=== PATIENT | male | born 1965 | race Caucasian/White ===

== ENCOUNTER 2020-08-02 21:48 | Emergency (ER) | payer MEDICAID, SELFPAY ==
[2020-08-02 21:58] VITALS: BP 134/94; PULSE 97; RESP 18; TEMP 36.8; O2SAT 95; BMI 33.0
--- NOTE | 2020-08-02 22:07 | CT_ITS ---
PROCEDURE: CT ABDOMEN PELVIS WO CON CLINICAL INDICATION: left flank pain COMPARISON: No exams were available for comparison TECHNIQUE: Axial images obtained with sagittal and coronal reformats. All CT scans at the facility use one or more dose reduction, viz: automated exposure control, ma/kV adjustment per patient size (including targeted exams where dose is matched to indication, i.e. head), or iterative reconstruction technique. FINDINGS: LOWER THORAX: No acute finding ABDOMEN & PELVIS: The liver, spleen, pancreas, adrenal glands, and kidneys show no acute finding. No intestinal obstruction or free air. No evidence of appendicitis or diverticulitis. No pelvic mass, abnormal fluid collection, or focal inflammatory change of the pelvis. No acute bony anomalies. IMPRESSION: No acute finding Dictated by: Skinny Cedeño MD 08/03/2020 05:48 Skinny Cedeño MD in [place] 08/03/2020 05:48
[2020-08-02 22:28] LABS: Basophils % 0.4 % (0.1-2.0); Eosinophils # 0.2 K/mm3 (0.0-0.4); Eosinophils % 2.2 % (0.1-12.0); Hemoglobin 15.8 g/dL (14.1-18.0); Lymphocytes # 2.6 K/mm3 (0.7-4.5); Lymphocytes % 35.9 % (10-50); Mean Corpuscular HGB Conc 32.2 g/dL (31.8-35.4); Mean Corpuscular Hemoglobin 29.7 pg (27.0-31.2); Mean Corpuscular Volume 92.4 fl (80-94); Mean Platelet Volume 7.4 fl (7.4-10.4); Monocytes # 0.5 K/mm3 (0.1-1.0); Monocytes % 6.4 % (1.7-9.3); Neutrophils # 4.1 K/mm3 (1.8-7.8); Neutrophils % 55.1 % (37.0-80.0); Platelet Count 249 K/mm3 (142-424); Red Cell Distribution Width 13.6 % (11.5-17.5); White Blood Count 7.4 K/mm3 (4.8-10.8)
[2020-08-02 22:29] LABS: Chloride 96 mmol/L (98-107)
[2020-08-02 22:30] LABS: Potassium 3.9 mmoL/L (3.5-5.1); Sodium 132 mmol/L (136-145)
[2020-08-02 22:30] LABS: Microscopic, Urine URINE MICROSCOPIC (MICROSCOPIC)
[2020-08-02 22:32] LABS: Amylase 61 U/L (30-110); Blood Urea Nitrogen 16 mg/dl (9-20); Creatinine Clearance Estimated 149 mL/min (50-200); Estimated Glomerular Filt Rate 88 ml/min (>60); GFR (African American) 106 ML/MIN (>60)
--- NOTE | 2020-08-02 22:32 | HMH.EDGENADL ---
ED Disposition Clinical Impression: Flank pain, acute Diabetes mellitus Qualifiers: Diabetes mellitus type: type 2 Diabetes mellitus parts counterman insulin use: unspecified parts counterman insulin use status Diabetes mellitus complication status: with other specified complication Qualified Code(s): E11.69 - Type 2 diabetes mellitus with other specified complication Disposition: Home, Self-Care Condition on Discharge: Good Instructions: DI for Flank Pain Additional Instructions: fluids and use meds and call pcp for follow up Prescriptions: levoFLOXacin [Levaquin 500mg tab] 500 mg PO DAILY #7 tab Transmission Status: Pending to [facility] #[id number] Referrals: Elijah Oneal MD [Primary Care Provider] - - Critical Care Critical Care Time: No Attestation: On 08/02/20, the high probability of a clinically significant, sudden or life threatening deterioration of the following system(s) required my full and direct attention, intervention and personal management. The time I documented below is in addition to time spent performing reported procedures but includes the following listed in this critical care notation. Medical Decision Making - Medical Records Medical records reviewed: Yes: I reviewed the patient's medical records. - Brayden Inquiry Pt receiving controlled substance: No Vital Signs: 08/02/20 21:58 08/02/20 23:00 08/02/20 23:31 Temperature 98.3 F Temperature Source Oral Pulse Rate [Right] 97 H 76 75 Respiratory Rate 18 16 16 Blood Pressure [Right Arm] 134/94 H 109/61 L 117/62 Blood Pressure Mean [Right Arm] 107 77 80 Blood Pressure Source [Right Arm] Automatic Cuff Automatic Cuff Automatic Cuff Blood Pressure Position [Right Arm] Supine Supine Supine 02 Sat by Pulse Oximetry 95 95 97 Oxygen Delivery Method Room Air Room Air Room Air - Lab Data Lab results reviewed: Yes: I reviewed the patient's lab results. Lab Results 08/02/20 21:55: Urine Color Yellow, Urine Appearance Clear, Urine pH 5.5, Ur Specific [place] 1.020, Urine Protein Negative, Urine Glucose (UA) 3+, Urine Ketones Negative, Urine Blood 2+, Urine Nitrate Negative, Urine Bilirubin Negative, Urine Urobilinogen 0.2, Ur Leukocyte Esterase Negative 08/02/20 22:00: WBC 7.4, RBC 5.30, Hgb 15.8, Hct 49.0, MCV 92.4, MCH 29.7, MCHC 32.2, RDW 13.6, Plt Count 249, MPV 7.4, Neut % (Auto) 55.1, Lymph % (Auto) 35.9, [place] % (Auto) 6.4, Eos % (Auto) 2.2, Baso % (Auto) 0.4, Neut # (Auto) 4.1, Lymph # (Auto) 2.6, [place] # (Auto) 0.5, Eos # (Auto) 0.2, Baso # (Auto) 0.0, ESR 3 08/02/20 22:00: Sodium 132 L, Potassium 3.9, Chloride 96 L, Carbon Dioxide 27, Anion Gap 12.9, BUN 16, Creatinine 0.90, Estimated Creat Clear 149, Estimated GFR 88, Est GFR ( Amer) 106, Glucose 512 H*, Calcium 9.7, Total Bilirubin 0.7, AST 40, ALT 44, Alkaline Phosphatase 87, C-Reactive Protein 5.8 H, Total Protein 7.3, Albumin 4.2, Globulin 3.1, Albumin/Globulin Ratio 1.4, Amylase 61, Lipase 42 Result diagrams: 08/02/20 22:00 08/02/20 22:00 Orders (Tests/Meds): ED MEDICATIONS Generic Name Dose Route Start Last Admin Trade Name Freq PRN Reason Stop Dose Admin Sodium Chloride 1,000 mls @ 999 mls/hr 08/02/20 22:15 08/02/20 22:12 Sod Chlor 0.9% 1000ml Bag IV 08/02/20 23:15 999 mls/hr .Q1H1M SHAKIRA Administration Discontinued Medications Generic Name Dose Route Start Last Admin Trade Name Freq PRN Reason Stop Dose Admin Acetaminophen/Codeine Phosphate 1 gisel 08/02/20 23:46 08/02/20 23:47 Acetaminophen 300mg W/Codeine 30mg Take Home Pack (6) PO 08/02/20 23:47 1 gisle ONCE ONE Administration Insulin Human Regular 5 unit 08/02/20 23:21 08/02/20 23:22 Insulin Human Regular 100 Units/Ml 10ml Vial IVP 08/02/20 23:22 5 unit ONCE ONE Administration Ketorolac Tromethamine 30 mg 08/02/20 22:07 08/02/20 22:12 Ketorolac 30mg/Ml Vial IV 08/02/20 22:08 30 mg ONCE ONE Administration Levofloxacin 500 mg 08/02/20 23:46
[2020-08-02 22:33] LABS: Alanine Aminotransferase 44 U/L (12-78); Albumin Level 4.2 g/dl (3.5-5.0); Albumin/Globulin Ratio 1.4 (1.1-1.8); Alkaline Phosphatase 87 U/L (38-126); Anion Gap 12.9 mEq/L (5-15); Aspartate Amino Transferase 40 U/L (17-59); Bilirubin,Total 0.7 mg/dl (0.2-1.3); Calcium 9.7 mg/dl (8.4-10.2); Carbon Dioxide 27 mmol/L (22.0-30.0); Globulin 3.1 g/dL (1.3-3.2); Lipase 42 U/L (23-300); Total Protein,Serum 7.3 g/dl (6.3-8.2)
[2020-08-02 22:38] LABS: C-Reactive Protein 5.8 mg/L (0-4)
[2020-08-02 23:00] VITALS: BP 109/61; PULSE 76; RESP 16; O2SAT 95
[2020-08-02 23:13] LABS: Glucose 512 mg/dl (74-100)
[2020-08-02 23:16] LABS: Erythrocyte Sedimentation Rate 3 mm/hr (0-20)
[2020-08-02 23:23] LABS: Appearance,Urine CLEAR (Clear); Bilirubin,Urine Negative (Negative); Blood, Urine 2+ (Negative); Color,Urine YELLOW (Yellow); Glucose,Urine (UA) 3+ (Negative); Ketones,Urine Negative (Negative); Leukocyte Esterase,Urine Negative (Negative); Nitrate,Urine Negative (Negative); PH,Urine 5.5 (5.0-8.5); Protein,Urine Negative (Negative); Urobilinogen,Urine 0.2 EU/dl (0.2)
[2020-08-02 23:31] VITALS: BP 117/62; PULSE 75; RESP 16; O2SAT 97
[2020-08-02 23:51] LABS: Procalcitonin 0.054 ng/mL (0.0-2.0)
[2020-08-02 23:55] LABS: Amorphous Sediment,Urine 1+ /lpf; Bacteria,Urine 1+ /lpf; Mucus,Urine 1+ /lpf
[2020-08-03 00:03] VITALS: BP 125/72; PULSE 74; RESP 16; TEMP 36.6; O2SAT 98
== END 2020-08-03 00:06 | disposition home or self-care (01) ==
PROVIDERS: Emergency Provider Emergency Medicine; PCP Family Medicine
DX: R10.32 Left lower quadrant pain (principal); E11.65 Type 2 diabetes mellitus with hyperglycemia; Z87.442 Personal history of urinary calculi; Z79.899 Other long term (current) drug therapy
CPT/HCPCS: 74176; 80053; 81001; 82150; 83690; 84145; 85025; 85651; 86140; 96365; 96375; 99284; J2405

== ENCOUNTER 2020-09-17 16:29 | Emergency (ER) | payer OTHER, SELFPAY ==
[2020-09-17 16:31] VITALS: BP 167/100; PULSE 69; RESP 20; TEMP 36.6; O2SAT 98; BMI 352572.8
[2020-09-17 16:50] VITALS: BP 149/97; PULSE 78; RESP 18; TEMP 36.6; O2SAT 97; BMI 35.2
--- NOTE | 2020-09-17 17:09 | HMH.EDUTC ---
[facility] [place] Disposition Clinical Impression: Hyperglycemia Intracerebral hemorrhage Qualifiers: Intracerebral hemorrhage etiology: nontraumatic Cerebral hemorrhage location: cerebral hemisphere, unspecified portion Laterality: right Qualified Code(s): I61.2 - Nontraumatic intracerebral hemorrhage in hemisphere, unspecified Disposition: Xfer Short-Term Hosp Condition on Discharge: Fair Referrals: PCP,No [Primary Care Provider] - Forms: Transfer Record - ED Medical Decision Making - Medical Records Medical records reviewed: No: I reviewed the patient's medical records. - Brayden Inquiry Pt receiving controlled substance: No Vital Signs: 09/17/20 16:31 09/17/20 16:50 09/17/20 18:31 Temperature 98 F 97.9 F Temperature Source Oral Oral Pulse Rate Pulse Rate [Right Brachial] 69 78 76 Respiratory Rate 20 18 18 Blood Pressure Blood Pressure [Right Arm] 167/100 H 149/97 H 154/96 H Blood Pressure Mean [Right Arm] 122 114 115 Blood Pressure Source Blood Pressure Source [Right Arm] Automatic Cuff Automatic Cuff Blood Pressure Position Blood Pressure Position [Right Arm] Sitting Sitting Sitting 02 Sat by Pulse Oximetry 98 97 98 Oxygen Delivery Method Room Air Room Air Room Air 09/17/20 20:28 Temperature 98.0 F Temperature Source Oral Pulse Rate 91 H Pulse Rate [Right Brachial] Respiratory Rate 15 Blood Pressure 141/96 H Blood Pressure [Right Arm] Blood Pressure Mean [Right Arm] Blood Pressure Source Automatic Cuff Blood Pressure Source [Right Arm] Blood Pressure Position Sitting Blood Pressure Position [Right Arm] 02 Sat by Pulse Oximetry Oxygen Delivery Method Room Air - Lab Data Lab Results 09/17/20 17:30: WBC 9.2, RBC 5.75, Hgb 16.8, Hct 52.1 H, MCV 90.6, MCH 29.3, MCHC 32.3, RDW 13.7, Plt Count 321, MPV 7.5, Neut % (Auto) 70.7, Lymph % (Auto) 21.8, [place] % (Auto) 4.9, Eos % (Auto) 2.2, Baso % (Auto) 0.4, Neut # (Auto) 6.5, Lymph # (Auto) 2.0, [place] # (Auto) 0.5, Eos # (Auto) 0.2, Baso # (Auto) 0.0 09/17/20 17:30: Sodium 137, Potassium 4.3, Chloride 98, Carbon Dioxide 28, Anion Gap 15.0, BUN 13, Creatinine 1.00, Estimated Creat Clear 139, Estimated GFR 78, Est GFR ( Amer) 94, Glucose 418 H*, Calcium 9.8, Total Bilirubin 0.6, AST 24, ALT 36, Alkaline Phosphatase 81, Total Protein 8.0, Albumin 4.6, Globulin 3.4 H, Albumin/Globulin Ratio 1.4 09/17/20 17:30: PT 10.8, INR 0.97 09/17/20 18:20: Urine Color Yellow, Urine Appearance Clear, Urine pH 5.5, Ur Specific [place] 1.025, Urine Protein Negative, Urine Glucose (UA) 3+, Urine Ketones Trace, Urine Blood Negative, Urine Nitrate Negative, Urine Bilirubin Negative, Urine Urobilinogen 0.2, Ur Leukocyte Esterase Negative, Ur Squamous Epith Cells 3-5 Result diagrams: 09/17/20 17:30 09/17/20 17:30 Orders (Tests/Meds): ED MEDICATIONS Discontinued Medications Generic Name Dose Route Start Last Admin Trade Name Ya PRN Reason Stop Dose Admin Hydromorphone HCl 1 mg 09/17/20 18:28 09/17/20 18:37 Hydromorphone 2mg/Ml Syringe IV 09/17/20 18:29 1 mg ONCE ONE Administration Hydromorphone HCl 1 mg 09/17/20 19:12 09/17/20 19:18 Hydromorphone 2mg/Ml Syringe IV 09/17/20 19:13 1 mg ONCE ONE Administration Sodium Chloride 1,000 mls @ 999 mls/hr 09/17/20 18:00 09/17/20 17:20 Sod Chlor 0.9% 1000ml Bag IV 09/17/20 19:00 999 mls/hr .Q1H1M SHAKIRA Administration Ondansetron HCl 4 mg 09/17/20 18:28 09/17/20 18:37 Ondansetron 4mg/2ml Vial IV 09/17/20 18:29 4 mg ONCE ONE Administration Medical Decision Narrative: I transferred him to the er due to his severe head ache. [facility] [place] HPI - General Stated complaint: headache, vomiting, Covid test Time Seen by Provider: 09/17/20 17:09 - History of Present Illness Provider Complaint: He is here with c/o of severe head ache. He has also been coughing and chilling at home. He states that his headache is the worst one he has ever had. He states that he rarely ge
--- NOTE | 2020-09-17 17:18 | XR_ITS ---
PROCEDURE: XR CHEST 2V Referring Doctor: Charles Valenzuela Patient Age:54Y CLINICAL HISTORY: COUGH Smoker COMPARISON: CT CT ABDOMEN PELVIS WO CON from 08/02/2020 FINDINGS: PA and lateral chest performed today but the lungs are well expanded and clear with nothing acute.. Heart upper normal size/borderline cardiomegaly.. With pulmonary vascularity are within normal limits.. The lungs are clear without infiltrates, suspicious nodules, or pleural effusions. The no pneumothorax. Chest wall T-spine unremarkable but No acute bony abnormalities. IMPRESSION: Lungs clear with nothing definitely acute The heart is upper normal size.. Dictated by: Andrews Vasquez MD 09/17/2020 19:00 Andrews Vasquez MD in [place] 09/17/2020 19:00
--- NOTE | 2020-09-17 17:23 | PC.NURSE ---
Pt going to be moved over to ED, asked [facility] to hold pt until room avaiable. Orders placed at this time.
--- NOTE | 2020-09-17 17:24 | CT_ITS ---
PROCEDURE: CT HEAD/BRAIN WO CON Referring Doctor: TrenthebetoAlfie Patient Age:54Y CLINICAL INDICATION: migraine headache for 4 days. Nausea vomiting pain right side.. No previous studies COMPARISON: No exams were available for comparison TECHNIQUE: No IV contrast. Standard axial images were obtained. All CT scans at the facility use one or more dose reduction, viz: automated exposure control, ma/kV adjustment per patient size (including targeted exams where dose is matched to indication, i.e. head), or iterative reconstruction technique. FINDINGS: There is a small focal localized acute hemorrhage focus seen at the a peripherally at the posterior right cerebral hemisphere. This is at the temporoparietal junction region. This small focal hemorrhage measuring 12 mm times 6 mm as seen on axial image 23. It is near the christine-white matter interface.. The overlying skull and scalp appear intact I see no evidence of trauma or other findings, on today's CT. Clinical correlation required.. Patient well benefit from follow-up MRI, or alternatively you may want to the consider a CTA, to survey for a small vascular malformation underlying... No additional similar hyperdense foci. The the no additional foci of bleeding or hemorrhage.. No hydrocephalus.The ventricles and basal cisterns appear clear and satisfactory. No no appreciable mass associated with this small hemorrhagic focus. No midline shift mass. The the no subdural or extra-axial fluid collection is evident. Posterior fossa unremarkable. Skull intact- calvarium and scalp unremarkable. Nomastoid effusions. Mastoid air cells are well developed and clear. Middle ear clear. IAC's symmetric. No moderate mucosal thickening throughout the ethmoid air cells bilaterally of and likely and extending to the maxillary sinuses. IMPRESSION: Small single Acute Hemorrhagic Focus towards the periphery of the posterior right cerebral hemisphere.-. At temporal parietal junction region. . No mass effect. No additional findings. -(ER notified by Dr. Vasquez at 6:10 p.m. September 17) . Dictated by: Andrews Vasquez MD 09/17/2020 18:06 Andrews Vasquez MD in [place] 09/17/2020 18:06
--- NOTE | 2020-09-17 17:38 | PC.NURSE ---
PATIENT TO RADIOLOGY FOR CT AND CHEST XRAY
--- NOTE | 2020-09-17 17:55 | PC.NURSE ---
PATIENT TO ER PER PRATIBHA ALBRECHT APRN FOR FURTHER EVALUATION. REPORTS GIVEN TO Gloria SCHOFIELD RN
[2020-09-17 18:07] LABS: Basophils % 0.4 % (0.1-2.0); Eosinophils # 0.2 K/mm3 (0.0-0.4); Eosinophils % 2.2 % (0.1-12.0); Hematocrit 52.1 % (42.0-52.0); Hemoglobin 16.8 g/dL (14.1-18.0); Lymphocytes % 21.8 % (10-50); Mean Corpuscular HGB Conc 32.3 g/dL (31.8-35.4); Mean Corpuscular Hemoglobin 29.3 pg (27.0-31.2); Mean Corpuscular Volume 90.6 fl (80-94); Mean Platelet Volume 7.5 fl (7.4-10.4); Monocytes # 0.5 K/mm3 (0.1-1.0); Monocytes % 4.9 % (1.7-9.3); Neutrophils # 6.5 K/mm3 (1.8-7.8); Neutrophils % 70.7 % (37.0-80.0); Platelet Count 321 K/mm3 (142-424); Red Blood Count 5.75 M/mm3 (4.60-6.20); Red Cell Distribution Width 13.7 % (11.5-17.5); White Blood Count 9.2 K/mm3 (4.8-10.8)
[2020-09-17 18:09] LABS: Chloride 98 mmol/L (98-107); Sodium 137 mmol/L (136-145)
[2020-09-17 18:10] LABS: Potassium 4.3 mmoL/L (3.5-5.1)
[2020-09-17 18:12] LABS: Alanine Aminotransferase 36 U/L (12-78); Albumin Level 4.6 g/dl (3.5-5.0); Albumin/Globulin Ratio 1.4 (1.1-1.8); Alkaline Phosphatase 81 U/L (38-126); Aspartate Amino Transferase 24 U/L (17-59); Bilirubin,Total 0.6 mg/dl (0.2-1.3); Blood Urea Nitrogen 13 mg/dl (9-20); Carbon Dioxide 28 mmol/L (22.0-30.0); Creatinine Clearance Estimated 139 mL/min (50-200); Estimated Glomerular Filt Rate 78 ml/min (>60); GFR (African American) 94 ML/MIN (>60); Globulin 3.4 g/dL (1.3-3.2)
[2020-09-17 18:13] LABS: Calcium 9.8 mg/dl (8.4-10.2)
[2020-09-17 18:15] LABS: Glucose 418 mg/dl (74-100)
[2020-09-17 18:16] LABS: INR 0.97 (0.9-1.1); Prothrombin Time 10.8 seconds (9.4-11.8)
--- NOTE | 2020-09-17 18:16 | PC.NURSE ---
Dr Vasquez called advising that pt ct showed focal hemorrhage and to advise Dr Arias, Dr Arias advised. r
--- NOTE | 2020-09-17 18:17 | HMH.EDGENADL ---
ED Disposition Clinical Impression: Hyperglycemia Intracerebral hemorrhage Qualifiers: Intracerebral hemorrhage etiology: nontraumatic Cerebral hemorrhage location: cerebral hemisphere, unspecified portion Laterality: right Qualified Code(s): I61.2 - Nontraumatic intracerebral hemorrhage in hemisphere, unspecified Disposition: Xfer Short-Term Hosp Condition on Discharge: Serious Referrals: PCP,No [Primary Care Provider] - Forms: Transfer Record - ED - Critical Care Critical Care Time: No Attestation: On 09/17/20, the high probability of a clinically significant, sudden or life threatening deterioration of the following system(s) required my full and direct attention, intervention and personal management. The time I documented below is in addition to time spent performing reported procedures but includes the following listed in this critical care notation. Medical Decision Making - Brayden Inquiry Pt receiving controlled substance: Yes Brayden was queried for this patient: No Reason not queried -: Emergent pt cond-no time Risks and benefits of using a controlled substance: were not discussed with pt by me Vital Signs: 09/17/20 16:31 09/17/20 16:50 09/17/20 18:31 Temperature 98 F 97.9 F Temperature Source Oral Oral Pulse Rate [Right Brachial] 69 78 76 Respiratory Rate 20 18 18 Blood Pressure [Right Arm] 167/100 H 149/97 H 154/96 H Blood Pressure Mean [Right Arm] 122 114 115 Blood Pressure Source [Right Arm] Automatic Cuff Automatic Cuff Blood Pressure Position [Right Arm] Sitting Sitting Sitting 02 Sat by Pulse Oximetry 98 97 98 Oxygen Delivery Method Room Air Room Air Room Air - Lab Data Lab Results 09/17/20 17:30: WBC 9.2, RBC 5.75, Hgb 16.8, Hct 52.1 H, MCV 90.6, MCH 29.3, MCHC 32.3, RDW 13.7, Plt Count 321, MPV 7.5, Neut % (Auto) 70.7, Lymph % (Auto) 21.8, [place] % (Auto) 4.9, Eos % (Auto) 2.2, Baso % (Auto) 0.4, Neut # (Auto) 6.5, Lymph # (Auto) 2.0, [place] # (Auto) 0.5, Eos # (Auto) 0.2, Baso # (Auto) 0.0 09/17/20 17:30: Sodium 137, Potassium 4.3, Chloride 98, Carbon Dioxide 28, Anion Gap 15.0, BUN 13, Creatinine 1.00, Estimated Creat Clear 139, Estimated GFR 78, Est GFR ( Amer) 94, Glucose 418 H*, Calcium 9.8, Total Bilirubin 0.6, AST 24, ALT 36, Alkaline Phosphatase 81, Total Protein 8.0, Albumin 4.6, Globulin 3.4 H, Albumin/Globulin Ratio 1.4 09/17/20 17:30: PT 10.8, INR 0.97 09/17/20 18:20: Urine Color Yellow, Urine Appearance Clear, Urine pH 5.5, Ur Specific [place] 1.025, Urine Protein Negative, Urine Glucose (UA) 3+, Urine Ketones Trace, Urine Blood Negative, Urine Nitrate Negative, Urine Bilirubin Negative, Urine Urobilinogen 0.2, Ur Leukocyte Esterase Negative, Ur Squamous Epith Cells 3-5 Result diagrams: 09/17/20 17:30 09/17/20 17:30 Orders (Tests/Meds): ED MEDICATIONS Discontinued Medications Generic Name Dose Route Start Last Admin Trade Name Ya PRN Reason Stop Dose Admin Hydromorphone HCl 1 mg 09/17/20 18:28 09/17/20 18:37 Hydromorphone 2mg/Ml Syringe IV 09/17/20 18:29 1 mg ONCE ONE Administration Hydromorphone HCl 1 mg 09/17/20 19:12 09/17/20 19:18 Hydromorphone 2mg/Ml Syringe IV 09/17/20 19:13 1 mg ONCE ONE Administration Sodium Chloride 1,000 mls @ 999 mls/hr 09/17/20 18:00 09/17/20 17:20 Sod Chlor 0.9% 1000ml Bag IV 09/17/20 19:00 999 mls/hr .Q1H1M SHAKIRA Administration Ondansetron HCl 4 mg 09/17/20 18:28 09/17/20 18:37 Ondansetron 4mg/2ml Vial IV 09/17/20 18:29 4 mg ONCE ONE Administration ORDERS Category Date Time Status Covid-19 Nasal PCR ([facility]) Routine Lab 09/17/20 16:50 Received - Radiology Data #1 Image(s): Chest Image Reviewed: Yes I have reviewed radiologist's interpretation PROCEDURE: XR CHEST 2V Referring Doctor: Charles Valenzuela Patient Age:54Y CLINICAL HISTORY: COUGH Smoker COMPARISON: CT CT ABDOMEN PELVIS WO CON from 08/02/2020 FINDINGS: PA and lateral chest performed today
[2020-09-17 18:29] LABS: Microscopic, Urine URINE MICROSCOPIC (MICROSCOPIC)
[2020-09-17 18:31] VITALS: BP 154/96; PULSE 76; RESP 18; O2SAT 98
[2020-09-17 18:31] LABS: Appearance,Urine CLEAR (Clear); Bilirubin,Urine Negative (Negative); Blood, Urine Negative (Negative); Color,Urine YELLOW (Yellow); Glucose,Urine (UA) 3+ (Negative); Ketones,Urine TRACE (Negative); Leukocyte Esterase,Urine Negative (Negative); Nitrate,Urine Negative (Negative); PH,Urine 5.5 (5.0-8.5); Protein,Urine Negative (Negative); Specific Gravity, Urine 1.025 (1.005-1.030); Urobilinogen,Urine 0.2 EU/dl (0.2)
--- NOTE | 2020-09-17 18:33 | PC.NURSE ---
speaking with Dr. Colmenares
--- NOTE | 2020-09-17 18:47 | PC.NURSE ---
Calling report to ER
[2020-09-17 20:28] VITALS: BP 141/96; PULSE 91; RESP 15; TEMP 36.7; O2SAT 93
== END 2020-09-17 20:31 | disposition short-term general hospital (02) ==
LOC: UTC 16:39 → ER 17:55
PROVIDERS: Nurse Practitioner Family; Emergency Provider Emergency Medicine
DX: I61.2 Nontraumatic intracerebral hemorrhage in hemisphere, unspecified (principal); E11.65 Type 2 diabetes mellitus with hyperglycemia; Z79.84 Long term (current) use of oral hypoglycemic drugs; Z20.822 Contact with and (suspected) exposure to COVID-19
CPT/HCPCS: 70450; 71046; 80053; 81001; 85025; 85610; 99284; J2405; U0003

== ENCOUNTER 2021-09-05 11:58 | Emergency (ER) | payer BC, SELFPAY ==
[2021-09-05 12:30] VITALS: BP 119/70; PULSE 80; RESP 16; TEMP 36.8; O2SAT 99; BMI 32.5
--- NOTE | 2021-09-05 12:31 | XR_ITS ---
FINAL REPORT CLINICAL HISTORY: cough, congestion x 1 week COMPARISON: 09/17/2020 FINDINGS: TWO VIEWS OF THE CHEST The heart is normal in size. The mediastinum is unremarkable. The lungs are clear. There is no pneumothorax. IMPRESSION: No acute cardiopulmonary process. Reviewed, Interpreted and Dictated by Luigi Friend III, MD Transcribed by Alka Lewis Authenticated by Luigi Friend III, MD on 09/05/2021 02:51:44 PM [facility]
[2021-09-05 14:47] VITALS: BP 132/87; PULSE 103; RESP 22; TEMP 36.5; O2SAT 94; BMI 31.1
--- NOTE | 2021-09-05 15:29 | HMH.EDUTC ---
[facility] [place] Disposition Clinical Impression: Viral syndrome, Exposure to COVID-19 virus, Bronchitis Disposition: Home, Self-Care Condition on Discharge: Good Instructions: DI for COVID-19 (Suspected or Confirmed ), Preventing the Spread of Coronavirus Discharge Instructions Additional Instructions: Drink plenty of fluids. Take tylenol or ibuprofen for pain or fever. Take the medications as directed. Follow up with your regular doctor. GO TO THE ER FOR ANY WORSENING SYMPTOMS Quarantine until you know the results of your covid-19 test. Notify your school or workplace of your results and follow their instructions regarding return to work/school. The cough medication (promethazine dm) will make you drowsy, so don't drive or operate heavy machinery after taking it. Prescriptions: Albuterol Sulfate [Albuterol Sulfate Hfa] 2 puffs IH Q6HP PRN 30 Days #1 each PRN Reason: Shortness Of Breath Transmission Status: Received by [facility] #[id number] Promethazine/Dextromethorphan [Promethazine-Dm Syrup] 5 ml PO Q6HP PRN #240 ml PRN Reason: Cough Transmission Status: Received by [facility] #[id number] Azithromycin [Z-Shady 250mg Tab*] 250 mg PO UD DOSE PK #6 tab Transmission Status: Received by [facility] #[id number] Referrals: Provider,Referral, [Primary Care Provider] - Forms: Work/School Release Time of Disposition: 15:34 Medical Decision Making - Medical Records Medical records reviewed: No: I reviewed the patient's medical records. - Brayden Inquiry Pt receiving controlled substance: No Vital Signs: 09/05/21 12:30 09/05/21 14:47 09/05/21 16:03 Temperature 98.3 F 97.7 F 97.7 F Temperature Source Oral Oral Pulse Rate 103 H Pulse Rate [Right] 80 103 H Respiratory Rate Blood Pressure 132/87 Blood Pressure [Right Arm] 119/70 132/87 Blood Pressure Mean [Right Arm] 86 102 Blood Pressure Source [Right Arm] Automatic Cuff Blood Pressure Position [Right Arm] Sitting 02 Sat by Pulse Oximetry 99 94 L Oxygen Delivery Method Room Air - Lab Data Lab results reviewed: Yes: I reviewed the patient's lab results. Lab Results 09/05/21 15:38: Influenza Type A Ag Negative, Influenza Type B Ag Negative [facility] [place] HPI - General Stated complaint: cough, congestion Time Seen by Provider: 09/05/21 15:29 Mode of Arrival: Ambulatory Source of Information: Patient Limitations: No Limitations Description of Symptoms (Recalled from Triage Doc. by RN): pt c/o a productive cough accompanied with chest pressure and SOA. HEENT Symptoms (Recalled from RN notes): No Resp Symptoms (Recalled from RN notes): Yes (SOA and a productive cough with chest pressure) Skin Symptoms (Recalled from RN notes): No MS Symptoms (Recalled from RN notes): No Functional Status (Recalled from RN notes): wnl - History of Present Illness Provider Complaint: He states that he has had chest congestion, a productive cough with yellowish sputum and body aches for the past 3 days. - Related Data Home Medications Medication Instructions Recorded Confirmed Metformin HCl [Fortamet] 500 mg PO DAILY 08/02/20 05/21/21 Previous Rx's Medication Instructions Recorded Albuterol Sulfate [Albuterol 2 puffs IH Q6HP PRN 30 Days #1 each 09/05/21 Sulfate Hfa] Azithromycin [Z-Shady 250mg Tab*] 250 mg PO UD DOSE PK #6 tab 09/05/21 Promethazine/Dextromethorphan 5 ml PO Q6HP PRN #240 ml 09/05/21 [Promethazine-Dm Syrup] Allergies Allergy/AdvReac Type Severity Reaction Status Date / Time No Known Allergies Allergy Verified 05/21/21 17:51 - Worker's Comp Is this a Worker's Comp case?: No [facility] History - Hepatitis A Screen Drug use history?: No High risk sexual behaviors?: No History of sexually transmitted infection?: No Currently employed?: No Childcare worker?: No Do you have indoor plumbing?: Yes Do you have electricity?: Yes Attestation statement:: This patient has been screened for
[2021-09-05 16:03] VITALS: BP 132/87; PULSE 103; RESP 22; TEMP 36.5
[2021-09-05 19:09] LABS: UTC Influenza A Antigen Negative (Negative)
[2021-09-05 19:37] LABS: UTC Influenza B Antigen Negative (Negative)
== END 2021-09-05 16:04 | disposition home or self-care (01) ==
PROVIDERS: Emergency Provider Nurse Practitioner Family
DX: U07.1 COVID-19 (principal); J20.9 Acute bronchitis, unspecified; E11.9 Type 2 diabetes mellitus without complications
CPT/HCPCS: 71046; 87804; 99202; C9803; G0463; U0003; U0005

== ENCOUNTER 2021-09-09 14:07 | Observation (INO) | payer OTHER, SELFPAY ==
[2021-09-09] VITALS (19 sets, daily range): BP systolic 93–160; BP diastolic 66–114; PULSE 87–117; RESP 16–22; TEMP 36.7–37.1; O2SAT 91–98; BMI 31.1; BMI 28.8
--- NOTE | 2021-09-09 14:33 | HMH.EDGENADL ---
ED Disposition Clinical Impression: Hyperglycemia, COVID-19 virus infection DVT (deep venous thrombosis) Qualifiers: DVT location: lower extremity Affected thrombotic vein of extremity: unspecified vein of extremity Chronicity: acute Laterality: left Qualified Code(s): I82.402 - Acute embolism and thrombosis of unspecified deep veins of left lower extremity Disposition: Admitted As Inpatient Condition on Discharge: Serious - Critical Care Critical Care Time: Yes Attestation: On 09/09/21, the high probability of a clinically significant, sudden or life threatening deterioration of the following system(s) required my full and direct attention, intervention and personal management. The time I documented below is in addition to time spent performing reported procedures but includes the following listed in this critical care notation. Total Critical Care Time: 30 Vital system(s) involved:: Circulatory Failure My critical care processes included: Assessment & monitoring of V/S, Initial and Re-exams, Data Review/Interpretation, Coordinating Care, Medication Orders and management, Documentation Medical Decision Making - Medical Records Medical records reviewed: Yes: I reviewed the patient's medical records. MR Comment: Seen by me in this emergency room on 09/17/2020 for headache and diagnosed with an intracerebral hemorrhage. Transferred to [facility] discovered to have venous sinus thrombosis. He was anticoagulated and was on Coumadin until December, when he lost insurance and stopped taking medications and has had no follow-up since then. Most recent hematology note indicates that he was supposed to have been on Coumadin for 6 months, then he was going to be tested for hypercoagulable states, but no return visits after that as patient stopped treatment and was lost to follow-up. Patient states he was on state insurance but got a job and his insurance was canceled, so he stopped his medication and did not return for follow-up. Also noted to have been seen at the urgent treatment center 4 days ago and had a COVID test which is positive. Patient was unaware of his positive result. - Brayden Inquiry Pt receiving controlled substance: Yes Brayden was queried for this patient: Yes Risks and benefits of using a controlled substance: were not discussed with pt by me Vital Signs: 09/09/21 14:08 09/09/21 14:20 09/09/21 15:01 Temperature 98.3 F Temperature Source Oral Pulse Rate 100 H Respiratory Rate 16 Blood Pressure 134/89 133/109 H Blood Pressure [Right Arm] 134/89 Blood Pressure Mean 117 Blood Pressure Mean [Right Arm] 104 Blood Pressure Source [Right Arm] Automatic Cuff Blood Pressure Position [Right Arm] Sitting 02 Sat by Pulse Oximetry 95 94 L Oxygen Delivery Method Room Air 09/09/21 15:17 09/09/21 15:30 09/09/21 15:45 Temperature Temperature Source Pulse Rate 106 H 100 H Respiratory Rate 20 16 Blood Pressure 121/95 H 131/101 H 120/82 Blood Pressure [Right Arm] Blood Pressure Mean 110 Blood Pressure Mean [Right Arm] Blood Pressure Source [Right Arm] Blood Pressure Position [Right Arm] 02 Sat by Pulse Oximetry 96 93 L Oxygen Delivery Method 09/09/21 16:01 09/09/21 16:15 09/09/21 16:20 Temperature Temperature Source Pulse Rate 92 H 88 88 Respiratory Rate 18 18 19 Blood Pressure 136/103 H 137/97 H 137/97 H Blood Pressure [Right Arm] Blood Pressure Mean Blood Pressure Mean [Right Arm] Blood Pressure Source [Right Arm] Blood Pressure Position [Right Arm] 02 Sat by Pulse Oximetry 94 L 93 L 92 L Oxygen Delivery Method 09/09/21 16:30 09/09/21 17:00 09/09/21 17:30 Temperature Temperature Source Pulse Rate 91 H 98 H Respiratory Rate 22 20 Blood Pressure 135/93 H 129/99 H 138/114 H Blood Pressure [Right Arm] Blood Pressure Mean 118 Blood Pressure Mean [Right Arm] Blood Pressure Source [Right Arm] Blood Pressure Positi
--- NOTE | 2021-09-09 14:35 | PC.NURSE ---
covid swab obtained and sent to lab
[2021-09-09 14:42] LABS: Influenza A, PCR Not Detected (NotDetected); Influenza B, PCR Not Detected (NotDetected)
[2021-09-09 14:52] LABS: Basophils # 0.1 K/mm3 (0-0.2); Basophils % 0.6 % (0.1-2.0); Eosinophils # 0.1 K/mm3 (0.0-0.4); Eosinophils % 1.5 % (0.1-12.0); Hematocrit 49.6 % (42.0-52.0); Hemoglobin 16.4 g/dL (14.1-18.0); Lymphocytes # 1.7 K/mm3 (0.7-4.5); Lymphocytes % 18.1 % (10-50); Mean Corpuscular HGB Conc 33.1 g/dL (31.8-35.4); Mean Corpuscular Hemoglobin 29.9 pg (27.0-31.2); Mean Corpuscular Volume 90.4 fl (80-94); Mean Platelet Volume 7.9 fl (7.4-10.4); Monocytes # 0.4 K/mm3 (0.1-1.0); Monocytes % 4.2 % (1.7-9.3); Neutrophils # 7.2 K/mm3 (1.8-7.8); Neutrophils % 75.7 % (37.0-80.0); Platelet Count 313 K/mm3 (142-424); Red Blood Count 5.49 M/mm3 (4.60-6.20); Red Cell Distribution Width 13.2 % (11.5-17.5); White Blood Count 9.6 K/mm3 (4.8-10.8)
[2021-09-09 14:53] LABS: Chloride 97 mmol/L (98-107)
[2021-09-09 14:54] LABS: Potassium 4.4 mmoL/L (3.5-5.1); Sodium 134 mmol/L (136-145)
[2021-09-09 14:56] LABS: Alanine Aminotransferase 35 U/L (12-78); Aspartate Amino Transferase 34 U/L (17-59); Blood Urea Nitrogen 14 mg/dl (9-20); Creatinine Clearance Estimated 203 mL/min (50-200); Estimated Glomerular Filt Rate 139 ml/min (>60); GFR (African American) 169 ML/MIN (>60)
--- NOTE | 2021-09-09 14:56 | PC.NURSE ---
Spoke with Rakesh about heparin bolus and drip dosing.
[2021-09-09 14:57] LABS: Albumin Level 4.5 g/dl (3.5-5.0); Albumin/Globulin Ratio 1.2 (1.1-1.8); Alkaline Phosphatase 105 U/L (38-126); Anion Gap 18.4 mEq/L (5-15); Bilirubin,Total 0.9 mg/dl (0.2-1.3); Calcium 10.1 mg/dl (8.4-10.2); Carbon Dioxide 23 mmol/L (22.0-30.0); Globulin 3.8 g/dL (1.3-3.2); Total Protein,Serum 8.3 g/dl (6.3-8.2)
[2021-09-09 14:58] LABS: INR 1.06 (0.9-1.1); Prothrombin Time 11.9 seconds (10.1-12.5)
[2021-09-09 15:03] LABS: Glucose 456 mg/dl (74-100)
[2021-09-09 15:04] LABS: Coronavirus 19, PCR Detected (NotDetected)
[2021-09-09 15:14] LABS: D-Dimer 5.04 ug/mL (0.0-0.5)
--- NOTE | 2021-09-09 15:15 | CA_ITS ---
FINAL REPORT TECHNIQUE: Ultrasound images of the deep venous system were obtained from the left groin to the calf veins. CLINICAL HISTORY: CVA STOPPED THINNERS 01/05 LOST INSURANCE +COVID ANGRY RED SWOLLEN LLE FINDINGS: Deep venous thrombosis is seen from the left common femoral vein to the posterior tibial vein. IMPRESSION: Deep venous thrombosis of the left common femoral vein to the posterior tibial vein. Reviewed, Interpreted and Dictated by Rogelio Dixon MD Transcribed by Kathryn Mai Authenticated by Rogelio Dixon MD on 09/10/2021 09:58:26 AM [facility]
--- NOTE | 2021-09-09 15:30 | PC.NURSE ---
Spoke with Laisha who advised Alina would be in, in approx hr to do pt's doppler.
--- NOTE | 2021-09-09 16:00 | PC.NURSE ---
Moved patient from room 11 to room 5 and placed on telemetry monitor prior to starting heparin drip
[2021-09-09 16:01] LABS: Activated Partial Thrombo Time 22.1 seconds (22.8-30.6)
--- NOTE | 2021-09-09 16:01 | PC.NURSE ---
Lab called with glucose results, repeated and verified and report to
--- NOTE | 2021-09-09 16:34 | PC.NURSE ---
desktop support technician bedside
--- NOTE | 2021-09-09 17:00 | PC.NURSE ---
called refrigeration houseman for admission, stated will call back
--- NOTE | 2021-09-09 17:05 | PC.NURSE ---
warehouse distribution associate called back and gave her info on admissions
--- NOTE | 2021-09-09 17:19 | PC.NURSE ---
FSBS 351. notified
[2021-09-09 17:25] LABS: POC Glucose,Bedside 351 (70-110)
--- NOTE | 2021-09-09 17:28 | PC.NURSE ---
Doppler being done at bedside at this time.
[2021-09-09 17:31] LABS: Activated Partial Thrombo Time 152.9 seconds (22.8-30.6)
--- NOTE | 2021-09-09 17:34 | PC.NURSE ---
Lab called with PTT of 152.9. Repeated and verified with lab and notified
--- NOTE | 2021-09-09 17:37 | PC.NURSE ---
CV at bedside performing doppler
--- NOTE | 2021-09-09 17:44 | PC.NURSE ---
Spoke with nightwatch regarding pt's lab results and drip. He advised to turn the drip down to 1500units/hr and recheck a APTT in 4 hours. Repeated and verified with pharmacist. Notified MD of new orders, advised he would place order for blood draw at 10 pm. Drip titrated at this time.
--- NOTE | 2021-09-09 17:52 | PC.NURSE ---
dietary brought supper tray to patient. was given to patient at this time.
--- NOTE | 2021-09-09 18:18 | PC.NURSE ---
pt placed in wheelchair to be taken upstairs by nurse.
[2021-09-09 20:19] LABS: POC Glucose,Bedside 291 (70-110)
[2021-09-09 22:47] LABS: PTT Heparin (inpatient only) 45.3 Seconds (23.6-34.0)
[2021-09-10] VITALS: BP 101/70; PULSE 88; RESP 20; TEMP 36.6; O2SAT 94
[2021-09-10 03:53] LABS: PTT Heparin (inpatient only) 65.5 Seconds (23.6-34.0)
[2021-09-10 04:00] VITALS: BP 96/73; PULSE 82; RESP 17; TEMP 36.4; O2SAT 94
--- NOTE | 2021-09-10 04:12 | PC.NURSE ---
Spoke with April from Night Watch at this time keep current rate of Heparin drip. PTT is 65.5
[2021-09-10 04:53] VITALS: BMI 29.7
[2021-09-10 05:28] LABS: POC Glucose,Bedside 255 (70-110)
--- NOTE | 2021-09-10 07:43 | HMH.PHAVTE ---
[facility] Pharmacy VTE Monitoring - Patient Demographics Admission date: 09/10/21 Report Date: 09/10/21 Time: 07:43 Allergies/Adverse Reactions: Patient Allergies No Known Allergies Allergy (Verified 05/21/21 17:51) Height: 1.83 m Weight: 99.507 kg Patient Problems: Current Active Problems Hyperglycemia (Acute) DVT (deep venous thrombosis) (Acute) COVID-19 virus infection (Acute) - VTE Risk Labs: VTE Related Lab Results Hgb 16.4 g/dL (14.1-18.0) 09/09/21 14:30 Hct 49.6 % (42.0-52.0) 09/09/21 14:30 Plt Count 313 K/mm3 (142-424) 09/09/21 14:30 PT 11.9 seconds (10.1-12.5) 09/09/21 14:30 INR 1.06 (0.9-1.1) 09/09/21 14:30 APTT 65.5 Seconds (23.6-34.0) H* 09/10/21 03:10 BUN 14 mg/dl (9-20) 09/09/21 14:30 Creatinine 0.60 mg/dl (0.66-1.25) L 09/09/21 14:30 Estimated Creat Clear 203 mL/min (50-200) 09/09/21 14:30 Clinical Trial Participant: No - Prophylaxis VTE Prophylaxis Ordered?: Yes Types of VTE Prophylaxis: TEDS Knee High, Pharmacological Pharmacologic Type: Heparin
[2021-09-10 08:00] VITALS: BP 107/75; PULSE 94; RESP 20; TEMP 36.3; O2SAT 95
--- NOTE | 2021-09-10 09:28 | HMH.HP ---
*Admission Date: 09/09/21 *Chief complaint: Leg swelling and pain *History of present illness: Seen by me in this emergency room on 09/17/2020 for headache and diagnosed with an intracerebral hemorrhage. Transferred to [facility] discovered to have venous sinus thrombosis. He was anticoagulated and was on Coumadin until December, when he lost insurance and stopped taking medications and has had no follow-up since then. Most recent hematology note indicates that he was supposed to have been on Coumadin for 6 months, then he was going to be tested for hypercoagulable states, but no return visits after that as patient stopped treatment and was lost to follow-up. Patient states he was on state insurance but got a job and his insurance was canceled, so he stopped his medication and did not return for follow-up. Also noted to have been seen at the urgent treatment center 4 days ago and had a COVID test which is positive. Patient was unaware of his positive result Above note per emergency room physician. Patient notes that he lost his insurance secondary to job change and the [facility] does not help people out until their body breaks down to the have to go to the ER. Patient had a cough 3 or 4 days ago, has a positive Covid test as noted above. Noted that his leg was swelling and hot over the past couple of days before presentation, in the ER was diagnosed with significant DVT. Admitted to hospital because of clot burden and his history of significant clot disease in the past. [facility] History I have reviewed the patient's past medical history: Yes Medical History: Reports:: Diabetes Mellitus Type 2 Denies:: Cancer, Diabetes Mellitus Type 1, Internal Pacemaker, MRSA *Have you ever received a pneumonia vaccine?: No *Have you received a flu vaccine this season?: No Laterality Cases: Bilateral: Tonsillectomy Other Surgeries: No: Pacemaker Amputation: No - *Social History Last grade of school completed: High school graduate Smoking Status: Never smoker Alcohol Intake: never *Occupational Status:: employed Housing: house Household Members: spouse *Travel in the last 8 weeks: None Family Hx:: No significant family history Review of Systems - Review of Systems Review of systems:: pertinent systems reviewed and negative unless documented below - *Neurologic Denies headache(s) Meds Home Medications Medication Instructions Recorded Confirmed Type Metformin HCl 500 mg PO DAILY 09/09/21 09/09/21 History Allergies Allergy/AdvReac Type Severity Reaction Status Date / Time No Known Allergies Allergy Verified 05/21/21 17:51 Exam Vital signs and Labs for Last 24 Hours: Temp Pulse Resp BP Pulse Ox 97.6 F 82 17 96/73 L 94 L 09/10/21 04:00 09/10/21 04:00 09/10/21 04:00 09/10/21 04:00 09/10/21 04:00 Laboratory Results - last 24 hr 09/09/21 14:30: WBC 9.6, RBC 5.49, Hgb 16.4, Hct 49.6, MCV 90.4, MCH 29.9, MCHC 33.1, RDW 13.2, Plt Count 313, MPV 7.9, Neut % (Auto) 75.7, Lymph % (Auto) 18.1, [place] % (Auto) 4.2, Eos % (Auto) 1.5, Baso % (Auto) 0.6, Neut # (Auto) 7.2, Lymph # (Auto) 1.7, [place] # (Auto) 0.4, Eos # (Auto) 0.1, Baso # (Auto) 0.1 09/09/21 14:30: PT 11.9, INR 1.06 09/09/21 14:30: Sodium 134 L, Potassium 4.4, Chloride 97 L, Carbon Dioxide 23, Anion Gap 18.4 H, BUN 14, Creatinine 0.60 L, Estimated Creat Clear 203, Estimated GFR 139, Est GFR ( Amer) 169, Glucose 456 H*, Calcium 10.1, Total Bilirubin 0.9, AST 34, ALT 35, Alkaline Phosphatase 105, Total Protein 8.3 H, Albumin 4.5, Globulin 3.8 H, Albumin/Globulin Ratio 1.2 09/09/21 14:30: D-Dimer 5.04 H 09/09/21 14:30: APTT 22.1 L 09/09/21 14:32: SARS-CoV-2 (PCR) Detected A, Influenza A Untype (PCR) Not detected, Influenza Type B (PCR) Not detected 09/09/21 16:35: APTT 152.9 H* D 09/09/21 17:18: POC Glucose 351 H* 09/09/21 20:13: POC Glucose 291 H 09/09/21 22:10: APTT 45.3 H 09/10/21 03:10: APTT 65.5 H* 09/10/21 05:21: POC Glucose 255 H I & O for
[2021-09-10 09:37] LABS: Chloride 97 mmol/L (98-107); PTT Heparin (inpatient only) 51.8 Seconds (23.6-34.0)
[2021-09-10 09:38] LABS: Potassium 3.9 mmoL/L (3.5-5.1); Sodium 133 mmol/L (136-145)
[2021-09-10 09:40] LABS: Alanine Aminotransferase 31 U/L (12-78); Alkaline Phosphatase 96 U/L (38-126); Aspartate Amino Transferase 28 U/L (17-59); Bilirubin,Total 0.8 mg/dl (0.2-1.3); Blood Urea Nitrogen 23 mg/dl (9-20); Creatinine Clearance Estimated 145 mL/min (50-200); Estimated Glomerular Filt Rate 100 ml/min (>60); GFR (African American) 121 ML/MIN (>60)
[2021-09-10 09:41] LABS: Albumin Level 4.1 g/dl (3.5-5.0); Albumin/Globulin Ratio 1.1 (1.1-1.8); Anion Gap 15.9 mEq/L (5-15); Calcium 9.1 mg/dl (8.4-10.2); Carbon Dioxide 24 mmol/L (22.0-30.0); Globulin 3.6 g/dL (1.3-3.2); Glucose 339 mg/dl (74-100); Total Protein,Serum 7.7 g/dl (6.3-8.2)
[2021-09-10 11:03] LABS: INR 1.13 (0.9-1.1); Prothrombin Time 12.7 seconds (10.1-12.5)
[2021-09-10 11:27] LABS: POC Glucose,Bedside 297 (70-110)
--- NOTE | 2021-09-10 13:42 | HMH.PHAHEP ---
[facility] Pharmacy Heparin Dosing - Demographic Data Admission date:: 09/09/21 Date: 09/09/21 Time: 14:30 Allergies/Adverse Reactions: Allergies Allergy/AdvReac Type Severity Reaction Status Date / Time No Known Allergies Allergy Verified 05/21/21 17:51 Height: 1.83 m Weight: 99.5 kg - Indication Medication therapy:: Heparin Patient Problems: Current Active Problems Diabetes mellitus (Acute) Hyperglycemia (Acute) DVT (deep venous thrombosis) (Acute) COVID-19 virus infection (Acute) Clotting disorder (Acute) CVA?: No Bleeding problem?: No Kidney disease?: No [place]?: No Desired PTT range:: Other Comments:: Target PTT 50-75 - Labs Anticoagulation Lab Results:: 09/09/21 14:30 Hgb 16.4 Hct 49.6 Plt Count 313 - Monitoring Dose Monitor 1 Date: 09/09/21 Time: 14:30 PTT Result:: PTT 22.1 Infusion Rate:: BOLUSED WITH HEPARIN 8500 UNITS AND STARTED DRIP AT 1800 UNITS/HR. Dose Monitor 2 Date: 09/09/21 Time: 16:35 PTT Result:: PTT 152.9 Infusion Rate:: DOSE WAS REDUCTED TO HEPARIN 1500 UNITS/HR. Dose Monitor 3 Date: 09/09/21 Time: 22:10 PTT Result:: PTT 45.3 Infusion Rate:: BOLUSED WITH HEPARIN 3000 UNITS AND INCREASED INFUSION RATE TO 1700 UNITS/HR. Dose Monitor 4 Date: 09/10/21 Time: 03:10 PTT Result:: PTT 65.5 Infusion Rate:: CONTINUE WITH HEPARIN 1700 UNITS/HR. Dose Monitor 5 Date: 09/10/21 Time: 09:00 PTT Result:: PTT 51.8 Infusion Rate:: CONTINUED HEPARIN 1700 UNITS/HR. Dose Monitor 6 Date: 09/10/21 Time: 17:10 PTT Result:: PTT 53.8 Infusion Rate:: CONTINUE WITH HEPARIN 1700 UNITS/HR Dose Monitor 7 Date: 09/11/21 Time: 09:00 PTT Result:: PTT 64.7 Infusion Rate:: CONTINUE WITH HEPARIN 1700 UNITS/HR Dose Monitor 8 Date: 09/11/21 Time: 21:00 - Core Measures Is INR > or = 2 at discharge?: No Most Recent Labs:: Laboratory Results - last 24 hr 09/09/21 14:30: WBC 9.6, RBC 5.49, Hgb 16.4, Hct 49.6, MCV 90.4, MCH 29.9, MCHC 33.1, RDW 13.2, Plt Count 313, MPV 7.9, Neut % (Auto) 75.7, Lymph % (Auto) 18.1, [place] % (Auto) 4.2, Eos % (Auto) 1.5, Baso % (Auto) 0.6, Neut # (Auto) 7.2, Lymph # (Auto) 1.7, [place] # (Auto) 0.4, Eos # (Auto) 0.1, Baso # (Auto) 0.1 09/09/21 14:30: PT 11.9, INR 1.06 09/09/21 14:30: Sodium 134 L, Potassium 4.4, Chloride 97 L, Carbon Dioxide 23, Anion Gap 18.4 H, BUN 14, Creatinine 0.60 L, Estimated Creat Clear 203, Estimated GFR 139, Est GFR ( Amer) 169, Glucose 456 H*, Calcium 10.1, Total Bilirubin 0.9, AST 34, ALT 35, Alkaline Phosphatase 105, Total Protein 8.3 H, Albumin 4.5, Globulin 3.8 H, Albumin/Globulin Ratio 1.2 09/09/21 14:30: D-Dimer 5.04 H 09/09/21 14:30: APTT 22.1 L 09/09/21 14:32: SARS-CoV-2 (PCR) Detected A, Influenza A Untype (PCR) Not detected, Influenza Type B (PCR) Not detected 09/09/21 16:35: APTT 152.9 H* D 09/09/21 17:18: POC Glucose 351 H* 09/09/21 20:13: POC Glucose 291 H 09/09/21 22:10: APTT 45.3 H 09/10/21 03:10: APTT 65.5 H* 09/10/21 04:10: PT 12.7 H, INR 1.13 H 09/10/21 05:21: POC Glucose 255 H 09/10/21 09:00: APTT 51.8 H* 09/10/21 09:00: Sodium 133 L, Potassium 3.9, Chloride 97 L, Carbon Dioxide 24, Anion Gap 15.9 H, BUN 23 H D, Creatinine 0.80 D, Estimated Creat Clear 145, Estimated GFR 100, Est GFR ( Amer) 121 D, Glucose 339 H D, Calcium 9.1, Total Bilirubin 0.8, AST 28, ALT 31, Alkaline Phosphatase 96, Total Protein 7.7, Albumin 4.1, Globulin 3.6 H, Albumin/Globulin Ratio 1.1 09/10/21 11:05: POC Glucose 297 H If INR was < than 2.0 why was therapy stopped?: PATIENT IS BEING DISCHARGED WITH LOVENOX 100 MG BID Were Heparin and Warfarin started on the same day?: Yes Comments:: FOLLOW UP IN COUMADIN CLINIC ON TUESDAY, SEPTEMBER 14, 2021 AT 0900.
[2021-09-10 16:00] VITALS: BP 105/67; PULSE 88; RESP 18; TEMP 36.9; O2SAT 96
[2021-09-10 17:27] LABS: POC Glucose,Bedside 211 (70-110)
[2021-09-10 18:10] LABS: PTT Heparin (inpatient only) 53.8 Seconds (23.6-34.0)
--- NOTE | 2021-09-10 18:32 | PC.NURSE ---
Notified compressor station chief engineer pharmacist aptt results, no change to heparin drip at this time, next lab at 0600
--- NOTE | 2021-09-10 18:51 | PC.NURSE ---
Pt has been alert and oriented x4. Lungs are clear, he remains on RA. He reports an occasional non productive cough. notified and kellen ordered prn. Pt reported relief from cough on reassessment. He complained of LLE pain x2 this shift. PRN toradol administered w/favorable results. He's ambulated to the bathroom with standby assist. Other than leg pain and cough he denies any complaints.
[2021-09-10 20:00] VITALS: BP 92/73; PULSE 84; RESP 19; TEMP 36.7; O2SAT 96; O2SAT 97
[2021-09-10 20:14] LABS: POC Glucose,Bedside 279 (70-110)
[2021-09-11 04:00] VITALS: BP 92/64; PULSE 81; RESP 17; TEMP 36.5; O2SAT 96
[2021-09-11 05:00] VITALS: BMI 29.3
[2021-09-11 05:31] LABS: POC Glucose,Bedside 224 (70-110)
--- NOTE | 2021-09-11 06:47 | SW/DCPLANNER ---
PATIENT ADMITTED TO [facility] WITH LEG SWELLING AND PAIN AND WAS FOUND TO HAVE A SIGNIFICANT DVT, IT WAS ALSO NOTED HE WAS POSITIVE FOR COVID..PATIENT DID NOT HAVE ANY INSURANCE WHEN HE PRESENTED INTO THE ED. HE IS FROM HOME AND PLANS TO RETURN BACK ONCE MEDICALLY STABLE. WILL FOLLOW PATIENT THROUGH HIS ACUTE STAY AND ASSIST WITH ANY NEEDS HE MAY HAVE.. THE FINANCIAL COUNSELOR HAS SEEN THIS PATIENT SINCE HE PRESENTED IN WITH NO INSURANCE.
[2021-09-11 07:25] LABS: Alanine Aminotransferase 26 U/L (12-78); Albumin Level 3.6 g/dl (3.5-5.0); Albumin/Globulin Ratio 1.2 (1.1-1.8); Alkaline Phosphatase 85 U/L (38-126); Anion Gap 10.5 mEq/L (5-15); Aspartate Amino Transferase 28 U/L (17-59); Bilirubin,Total 0.5 mg/dl (0.2-1.3); Blood Urea Nitrogen 19 mg/dl (9-20); Calcium 8.7 mg/dl (8.4-10.2); Carbon Dioxide 25 mmol/L (22.0-30.0); Chloride 103 mmol/L (98-107); Creatinine Clearance Estimated 164 mL/min (50-200); Estimated Glomerular Filt Rate 117 ml/min (>60); GFR (African American) 141 ML/MIN (>60); Globulin 3.1 g/dL (1.3-3.2); Glucose 253 mg/dl (74-100); Potassium 3.5 mmoL/L (3.5-5.1); Sodium 135 mmol/L (136-145); Total Protein,Serum 6.7 g/dl (6.3-8.2)
[2021-09-11 08:00] VITALS: BP 107/71; PULSE 81; RESP 17; TEMP 36.3; O2SAT 95; O2SAT 97
[2021-09-11 09:37] LABS: INR 1.35 (0.9-1.1); Prothrombin Time 14.9 seconds (10.1-12.5)
[2021-09-11 09:49] LABS: PTT Heparin (inpatient only) 64.7 Seconds (23.6-34.0)
--- NOTE | 2021-09-11 09:50 | PC.NURSE ---
0958-received PTT results from lab. verified name LUANA and room number 0950- spoke to True Ashley. No changes to heparin gtt at this time.
[2021-09-11 12:06] LABS: POC Glucose,Bedside 271 (70-110)
[2021-09-11 13:16] VITALS: BMI 29.2
--- NOTE | 2021-09-11 13:40 | HMH.DCSUM ---
General - General Admission date:: 09/09/21 Discharge date: 09/11/21 HPI HPI: Seen by me in this emergency room on 09/17/2020 for headache and diagnosed with an intracerebral hemorrhage. Transferred to [facility] discovered to have venous sinus thrombosis. He was anticoagulated and was on Coumadin until December, when he lost insurance and stopped taking medications and has had no follow-up since then. Most recent hematology note indicates that he was supposed to have been on Coumadin for 6 months, then he was going to be tested for hypercoagulable states, but no return visits after that as patient stopped treatment and was lost to follow-up. Patient states he was on state insurance but got a job and his insurance was canceled, so he stopped his medication and did not return for follow-up. Also noted to have been seen at the urgent treatment center 4 days ago and had a COVID test which is positive. Patient was unaware of his positive result Above note per emergency room physician. Patient notes that he lost his insurance secondary to job change and the [facility] does not help people out until their body breaks down to the have to go to the ER. Patient had a cough 3 or 4 days ago, has a positive Covid test as noted above. Noted that his leg was swelling and hot over the past couple of days before presentation, in the ER was diagnosed with significant DVT. Admitted to hospital because of clot burden and his history of significant clot disease in the past. Hospital Course Hospital Course: Admitted for Covid and extensive DVT in left lower extremity. Initiated on heparin drip and warfarin. Pain control managed with Toradol. Tolerated drink well. INR increased to 1.3 by day of discharge. Patient still had prominent swelling but no respiratory distress, oxygen requirement, chest pain or palpitations. Medically stable for discharge home with continued anticoagulation. Established with Coumadin clinic. We will continue warfarin at 7.5 mg. Continue Lovenox 100 mg twice daily to bridge until therapeutic INR between 2 and 3. Given samples of Jardiance to go along with Metformin for diabetes control. Close follow-up with the Coumadin clinic later this week to evaluate INR response and further management of warfarin. Will have follow-up in a week in our office for reevaluation of diabetes, establishing the outpatient setting, and further adjustment to medications. Patient medically stable for discharge home. Examined on day of discharge. Counseled on new medications and possible side effects. Objective Vital signs: Temp Pulse Resp BP Pulse Ox 97.3 F L 81 17 107/71 L 95 09/11/21 08:00 09/11/21 08:00 09/11/21 08:00 09/11/21 08:00 09/11/21 08:00 Narrative: - Constitutional no acute distress - *Routine HEENT Exam Head: Present: normocephalic Eye: Present: EOMI, PERRL ENT: Present: mucous membranes moist - *Routine Neck Exam Present: supple. Absent: lymphadenopathy - *Routine Respiratory Exam Present: CTA bilaterally - *Routine Cardiovascular Exam Present: RRR - *Routine Abdominal Exam Present: soft, normoactive bowel sounds. Absent: tenderness - *Routine Extremities Exam Absent: cyanosis, clubbing, edema; Left leg with redness, warmth, moderate tenderness and swelling from the thigh down to the ankle. No pulse deficits. Moderate pain with movement of the calf muscles and thigh muscles. - *Routine Skin Exam Present: warm. Absent: rash - *Routine Neurological Exam Present: alert, oriented X3 Results Labs on day of discharge: Labs from last 24 hours 09/11/21 09/11/21 09/11/21 11:57 09:05 06:55 PT 14.9 H INR 1.35 H APTT 64.7 H* Sodium Potassium Chloride Carbon Dioxide Anion Gap BUN Creatinine Estimated Creat Clear Estimated GFR Est GFR ( Amer) Glucose POC Glucose 271 H Calcium Total Bilirubin
[2021-09-12 13:11] LABS: Anti-Thrombin III Antigen 71 % (72-124); Protein C Functional 146 % (73-180); Protein S Antigen, Total 148 % (60-150); Protein S Functional 101 % (63-140)
[2021-09-12 15:12] LABS: Protein C Antigen 131 % (60-150)
== END 2021-09-11 15:40 | disposition home or self-care (01) ==
LOC: ER 17:15 → ICU 20:12
PROVIDERS: Internal Medicine Adolescent Medicine; Admitting Provider Internal Medicine Adolescent Medicine; Emergency Provider Emergency Medicine; Visit Provider Internal Medicine Adolescent Medicine
DX: U07.1 COVID-19 (principal); Z79.01 Long term (current) use of anticoagulants; Z79.4 Long term (current) use of insulin; Z79.899 Other long term (current) drug therapy; R79.1 Abnormal coagulation profile; I82.412 Acute embolism and thrombosis of left femoral vein; E11.9 Type 2 diabetes mellitus without complications; T45.516A Underdosing of anticoagulants, initial encounter; Z91.120 Patient's intentional underdosing of medication regimen due to financial hardship
CPT/HCPCS: 36415; 80053; 81241; 82962; 85025; 85301; 85302; 85305; 85306; 85378; 85610; 85730; 93971; 96365; 96372; 96375; 99284; C9803; G0378; J2405; U0003; U0005

== ENCOUNTER 2021-09-14 09:03 | Outpatient (CLI) | payer OTHER, SELFPAY ==
[2021-09-14 09:36] LABS: PHA INR Fingerstick 2.5 (0.9-1.1)
== END 2021-09-14 09:39 | disposition home or self-care (01) ==
LOC: ACC 09:04
PROVIDERS: Visit Provider Internal Medicine Adolescent Medicine
DX: Z51.81 Encounter for therapeutic drug level monitoring (principal); Z79.01 Long term (current) use of anticoagulants
CPT/HCPCS: 85610; G0463

== ENCOUNTER 2021-09-17 08:56 | Outpatient (CLI) | payer OTHER, SELFPAY ==
[2021-09-17 10:14] LABS: Prothrombin Time 78.6 seconds (10.1-12.5)
[2021-09-17 15:05] LABS: PHA INR Fingerstick 5.6 (0.9-1.1)
== END 2021-09-17 15:07 | disposition home or self-care (01) ==
LOC: ACC 08:58
PROVIDERS: Visit Provider Internal Medicine Adolescent Medicine
DX: Z51.81 Encounter for therapeutic drug level monitoring (principal); Z79.01 Long term (current) use of anticoagulants
CPT/HCPCS: 36415; 85610; 99211; G0463

== ENCOUNTER 2021-09-21 09:41 | Outpatient (CLI) | payer OTHER, SELFPAY ==
[2021-09-21 10:56] LABS: PHA INR Fingerstick 2.1 (0.9-1.1)
== END 2021-09-21 10:58 | disposition home or self-care (01) ==
LOC: ACC 09:42
PROVIDERS: PCP Internal Medicine Adolescent Medicine; Visit Provider Internal Medicine Adolescent Medicine
DX: Z51.81 Encounter for therapeutic drug level monitoring (principal); Z79.01 Long term (current) use of anticoagulants
CPT/HCPCS: 85610; 99211; G0463

== ENCOUNTER 2021-09-26 09:59 | Outpatient (CLI) | payer OTHER, SELFPAY ==
[2021-09-26 11:02] LABS: PHA INR Fingerstick 3.5 (0.9-1.1)
== END 2021-09-26 11:14 | disposition home or self-care (01) ==
LOC: ACC 10:00
PROVIDERS: PCP Internal Medicine Adolescent Medicine; Visit Provider Internal Medicine Adolescent Medicine
DX: Z51.81 Encounter for therapeutic drug level monitoring (principal); Z79.01 Long term (current) use of anticoagulants
CPT/HCPCS: 85610; 99211; G0463

== ENCOUNTER 2021-10-03 09:04 | Outpatient (CLI) | payer OTHER, SELFPAY ==
[2021-10-03 09:43] LABS: PHA INR Fingerstick 2.8 (0.9-1.1)
== END 2021-10-03 09:44 | disposition home or self-care (01) ==
LOC: ACC 09:04
PROVIDERS: PCP Internal Medicine Adolescent Medicine; Visit Provider Internal Medicine Adolescent Medicine
DX: Z51.81 Encounter for therapeutic drug level monitoring (principal); Z79.01 Long term (current) use of anticoagulants
CPT/HCPCS: 85610; 99211; G0463

== ENCOUNTER → 2021-10-13 10:28 | Outpatient (CLI) | payer OTHER, SELFPAY ==
[2021-10-13 11:36] LABS: INR 3.39 (0.9-1.1)
== END ==
PROVIDERS: PCP Internal Medicine Adolescent Medicine; Referring Provider Internal Medicine Adolescent Medicine; Visit Provider Internal Medicine Adolescent Medicine
DX: Z51.81 Encounter for therapeutic drug level monitoring (principal); Z79.01 Long term (current) use of anticoagulants
CPT/HCPCS: 36415; 85610

== ENCOUNTER 2021-11-02 18:31 | Emergency (ER) | payer BC, SELFPAY ==
[2021-11-02 18:32] VITALS: BP 123/84; PULSE 82; RESP 18; TEMP 36.8; O2SAT 98; BMI 28.7
[2021-11-02 19:00] VITALS: BP 104/67; PULSE 81; O2SAT 97
[2021-11-02 19:17] LABS: Basophils # 0.1 K/mm3 (0-0.2); Eosinophils # 0.3 K/mm3 (0.0-0.4); Eosinophils % 3.2 % (0.1-12.0); Hematocrit 46.5 % (42.0-52.0); Hemoglobin 15.1 g/dL (14.1-18.0); Lymphocytes # 2.6 K/mm3 (0.7-4.5); Lymphocytes % 30.3 % (10-50); Mean Corpuscular HGB Conc 32.5 g/dL (31.8-35.4); Mean Corpuscular Hemoglobin 29.1 pg (27.0-31.2); Mean Corpuscular Volume 89.6 fl (80-94); Monocytes # 0.4 K/mm3 (0.1-1.0); Neutrophils # 5.1 K/mm3 (1.8-7.8); Neutrophils % 60.5 % (37.0-80.0); Platelet Count 312 K/mm3 (142-424); Red Cell Distribution Width 13.9 % (11.5-17.5); White Blood Count 8.5 K/mm3 (4.8-10.8)
[2021-11-02 19:21] LABS: Alanine Aminotransferase 40 U/L (12-78); Albumin Level 4.4 g/dl (3.5-5.0); Albumin/Globulin Ratio 1.5 (1.1-1.8); Alkaline Phosphatase 71 U/L (38-126); Anion Gap 14.5 mEq/L (5-15); Aspartate Amino Transferase 30 U/L (17-59); Bilirubin,Total 0.9 mg/dl (0.2-1.3); Blood Urea Nitrogen 15 mg/dl (9-20); Carbon Dioxide 25 mmol/L (22.0-30.0); Chloride 103 mmol/L (98-107); Creatinine Clearance Estimated 158 mL/min (50-200); Estimated Glomerular Filt Rate 116 ml/min (>60); GFR (African American) 141 ML/MIN (>60); Glucose 240 mg/dl (74-100); Potassium 3.5 mmoL/L (3.5-5.1); Sodium 139 mmol/L (136-145); Total Protein,Serum 7.4 g/dl (6.3-8.2)
[2021-11-02 19:30] VITALS: BP 110/73; PULSE 77; O2SAT 98
[2021-11-02 19:45] VITALS: BP 102/72; PULSE 72; O2SAT 99
--- NOTE | 2021-11-02 20:15 | PC.NURSE ---
Addendum entered by Rosy Granados RN 11/02/21 21:27: Correction on warfarin, pt take 1/2 tab (5mg tab) daily. Original Note: Peripheral pulses, able to palpate without difficulty. Pt does report in Aug 2021 having 3 dvts in the Left calf. He is taking Warfarin 7.5mg daily and was on Lovenox Inj for 5 days when dx
[2021-11-02 20:55] LABS: Activated Partial Thrombo Time 26.2 seconds (22.8-30.6); INR 1.12 (0.9-1.1); Prothrombin Time 12.6 seconds (10.1-12.5)
--- NOTE | 2021-11-02 21:14 | HMH.EDLOEX ---
ED Disposition Clinical Impression: DVT (deep venous thrombosis) Qualifiers: DVT location: lower extremity Affected thrombotic vein of extremity: unspecified vein of extremity Chronicity: unspecified Laterality: left Qualified Code(s): I82.402 - Acute embolism and thrombosis of unspecified deep veins of left lower extremity Disposition: Home, Self-Care Condition on Discharge: Good Instructions: DI for Deep Vein Thrombosis Additional Instructions: follow up with pcp Referrals: Mahamed Ordonez MD [Primary Care Provider] - - Critical Care Critical Care Time: No Attestation: On 11/02/21, the high probability of a clinically significant, sudden or life threatening deterioration of the following system(s) required my full and direct attention, intervention and personal management. The time I documented below is in addition to time spent performing reported procedures but includes the following listed in this critical care notation. Medical Decision Making - Medical Records Medical records reviewed: Yes: I reviewed the patient's medical records. - Brayden Inquiry Pt receiving controlled substance: No Vital Signs: 11/02/21 18:32 11/02/21 19:00 11/02/21 19:30 Temperature 98.3 F Temperature Source Oral Pulse Rate 81 77 Pulse Rate [Right Radial] 82 Respiratory Rate 18 Blood Pressure 104/67 L 110/73 Blood Pressure [Right Arm] 123/84 Blood Pressure Mean [Right Arm] 97 Blood Pressure Source [Right Arm] Automatic Cuff Blood Pressure Position [Right Arm] Sitting 02 Sat by Pulse Oximetry 98 97 98 Oxygen Delivery Method Room Air Room Air Room Air 11/02/21 19:45 Temperature Temperature Source Pulse Rate 72 Pulse Rate [Right Radial] Respiratory Rate Blood Pressure 102/72 L Blood Pressure [Right Arm] Blood Pressure Mean [Right Arm] Blood Pressure Source [Right Arm] Blood Pressure Position [Right Arm] 02 Sat by Pulse Oximetry 99 Oxygen Delivery Method Room Air - Lab Data Lab results reviewed: Yes: I reviewed the patient's lab results. Lab Results 11/02/21 18:50: WBC 8.5, RBC 5.20, Hgb 15.1, Hct 46.5, MCV 89.6, MCH 29.1, MCHC 32.5, RDW 13.9, Plt Count 312, MPV 8.0, Neut % (Auto) 60.5, Lymph % (Auto) 30.3, Letcher % (Auto) 5.0, Eos % (Auto) 3.2, Baso % (Auto) 1.0, Neut # (Auto) 5.1, Lymph # (Auto) 2.6, Letcher # (Auto) 0.4, Eos # (Auto) 0.3, Baso # (Auto) 0.1 11/02/21 18:50: Sodium 139, Potassium 3.5, Chloride 103, Carbon Dioxide 25, Anion Gap 14.5, BUN 15, Creatinine 0.70, Estimated Creat Clear 158, Estimated GFR 116, Est GFR ( Amer) 141, Glucose 240 H, Calcium 9.0, Total Bilirubin 0.9, AST 30, ALT 40, Alkaline Phosphatase 71, Total Protein 7.4, Albumin 4.4, Globulin 3.0, Albumin/Globulin Ratio 1.5 11/02/21 18:50: PT 12.6 H, INR 1.12 H, APTT 26.2 Result diagrams: 11/02/21 18:50 11/02/21 18:50 Orders (Tests/Meds): ED MEDICATIONS Generic Name Dose Route Start Last Admin Trade Name Freq PRN Reason Stop Dose Admin Sodium Chloride 10 ml 11/02/21 19:08 Sodium Chloride 0.9% 10ml Flush Syringe IV 12/02/21 19:07 NEEDED PRN Maintain IV Site - Physician Consults Physician Consulted: josee Reason -: Pt condition Medical Decision Narrative: will bridge with lovenox and change coumadin dosing and check inr on friday Lower Extremity Injury HPI - General Chief Complaint: Extremity Injury, Lower Stated Complaint: Possible blood clot l leg Time Seen by Provider: 11/02/21 21:14 Mode of Arrival: Ambulatory Source of Information: Patient, Spouse, Medical Record Limitations: No Limitations Description of Symptoms (Recalled from ER Triage Doc. by RN): Pt c/o heat and swelling to left leg since Friday morning. Reports hx of blood clots. - History of Present Illness HPI Narrative: swollen lt lower leg with warmth - hx of dvt and on coumadin - has been compliant - no sob - MD complaint: other (swollen leg ) Onset (ago): day(s) Severity: moderate Associ
--- NOTE | 2021-11-02 21:27 | PC.NURSE ---
Dr. Cabrera s/w Dr Ordonez.
--- NOTE | 2021-11-02 21:28 | PC.NURSE ---
Dr. Ordonez would like pt to have tonight Lovenox 1mg/1kg & Warfarin 5mg po. Pt to return to ED tomorrow (11/03) for another Lovenox 1mg/1kg sq dose, and then again on Friday (11/04) to re-draw PT/INR. Pt educated to take whole tab (5mg) of Warfarin daily for Friday and Friday.
[2021-11-02 21:36] VITALS: BP 134/78; PULSE 81; RESP 18; TEMP 36.8; O2SAT 98
== END 2021-11-02 21:47 | disposition home or self-care (01) ==
PROVIDERS: Emergency Medicine; Emergency Provider Emergency Medicine; PCP Internal Medicine Adolescent Medicine
DX: I82.402 Acute embolism and thrombosis of unspecified deep veins of left lower extremity (principal); E11.9 Type 2 diabetes mellitus without complications; Z79.01 Long term (current) use of anticoagulants; Z79.84 Long term (current) use of oral hypoglycemic drugs; Z79.899 Other long term (current) drug therapy
CPT/HCPCS: 80053; 85025; 85610; 85730; 96372; 99283

== ENCOUNTER 2021-11-03 09:16 | Outpatient (CLI) | payer BC, SELFPAY ==
[2021-11-03 09:21] VITALS: BMI 28.7
[2021-11-03 09:28] VITALS: BP 100/66; PULSE 90; RESP 20; TEMP 36.6; O2SAT 98
--- NOTE | 2021-11-03 09:29 | PC.NURSE ---
spoke with Terry in pharmacy regarding pt's dosing. ok for lovenox 145mg sq
[2021-11-03 09:50] VITALS: BP 100/66; PULSE 90; RESP 20; TEMP 37; O2SAT 99
[2021-11-03 09:52] VITALS: BP 100/66; PULSE 90; RESP 20; TEMP 37; O2SAT 98
== END 2021-11-03 09:53 | disposition home or self-care (01) ==
LOC: INF 09:19
PROVIDERS: PCP Internal Medicine Adolescent Medicine; Visit Provider Emergency Medicine
DX: I82.402 Acute embolism and thrombosis of unspecified deep veins of left lower extremity (principal)

== ENCOUNTER → 2021-11-04 09:00 | Outpatient (CLI) | payer BC, SELFPAY ==
[2021-11-04 09:38] LABS: INR 2.51 (0.9-1.1); Prothrombin Time 26.5 seconds (10.1-12.5)
== END ==
LOC: INF 09:01 → LAB 09:02
PROVIDERS: PCP Internal Medicine Adolescent Medicine; Visit Provider Emergency Medicine
DX: Z51.81 Encounter for therapeutic drug level monitoring (principal); I82.402 Acute embolism and thrombosis of unspecified deep veins of left lower extremity
CPT/HCPCS: 36415; 85610

== ENCOUNTER → 2021-11-13 15:03 | Outpatient (CLI) | payer BC, SELFPAY ==
[2021-11-13 15:48] LABS: INR 2.03 (0.9-1.1); Prothrombin Time 21.8 seconds (10.1-12.5)
== END ==
PROVIDERS: Visit Provider Internal Medicine Adolescent Medicine
DX: Z51.81 Encounter for therapeutic drug level monitoring (principal); Z79.01 Long term (current) use of anticoagulants
CPT/HCPCS: 36415; 85610

== ENCOUNTER 2022-03-06 20:25 | Emergency (ER) | payer BC, SELFPAY ==
[2022-03-06 20:26] VITALS: BP 129/60; PULSE 94; RESP 18; TEMP 36.9; O2SAT 96; BMI 31.1
[2022-03-06 20:55] LABS: Basophils % 0.3 % (0.1-2.0); Eosinophils # 0.2 K/mm3 (0.0-0.4); Eosinophils % 2.6 % (0.1-12.0); Hematocrit 42.8 % (42.0-52.0); Hemoglobin 14.9 g/dL (14.1-18.0); Lymphocytes # 3.4 K/mm3 (0.7-4.5); Lymphocytes % 36.4 % (10-50); Mean Corpuscular HGB Conc 34.9 g/dL (31.8-35.4); Mean Corpuscular Hemoglobin 29.4 pg (27.0-31.2); Mean Corpuscular Volume 84.2 fl (80-94); Mean Platelet Volume 6.7 fl (7.4-10.4); Monocytes # 0.5 K/mm3 (0.1-1.0); Monocytes % 5.7 % (1.7-9.3); Neutrophils # 5.1 K/mm3 (1.8-7.8); Platelet Count 295 K/mm3 (142-424); Red Blood Count 5.08 M/mm3 (4.60-6.20); White Blood Count 9.3 K/mm3 (4.8-10.8)
[2022-03-06 20:57] LABS: Alanine Aminotransferase 29 U/L (12-78); Albumin Level 4.1 g/dl (3.5-5.0); Albumin/Globulin Ratio 1.4 (1.1-1.8); Alkaline Phosphatase 70 U/L (38-126); Aspartate Amino Transferase 26 U/L (17-59); Bilirubin,Total 0.6 mg/dl (0.2-1.3); Blood Urea Nitrogen 18 mg/dl (9-20); Calcium 9.4 mg/dl (8.4-10.2); Carbon Dioxide 28 mmol/L (22.0-30.0); Chloride 103 mmol/L (98-107); Creatinine Clearance Estimated 150 mL/min (50-200); Estimated Glomerular Filt Rate 100 ml/min (>60); GFR (African American) 121 ML/MIN (>60); Glucose 163 mg/dl (74-100); Potassium 3.6 mmoL/L (3.5-5.1); Total Protein,Serum 7.1 g/dl (6.3-8.2)
[2022-03-06 20:58] LABS: Anion Gap 9.6 mEq/L (5-15); Sodium 137 mmol/L (136-145)
[2022-03-06 21:01] LABS: INR 1.59 (0.9-1.1); Prothrombin Time 17.4 seconds (10.1-12.5)
[2022-03-06 21:02] LABS: C-Reactive Protein 1.6 mg/L (0-4)
--- NOTE | 2022-03-06 21:07 | HMH.EDALLER ---
ED Disposition Clinical Impression: Bee sting reaction Qualifiers: Encounter type: initial encounter Injury intent: accidental or unintentional Qualified Code(s): T63.441A - Toxic effect of venom of bees, accidental (unintentional), initial encounter Disposition: Home, Self-Care Condition on Discharge: Good Instructions: DI for Insect Bites and Stings Additional Instructions: fluids and call pcp for follow up Prescriptions: predniSONE [Prednisone 20mg Tab] 20 mg PO BID #10 tab Transmission Status: Pending to [facility] #[id number] Referrals: Mahamed Ordonez MD [Primary Care Provider] - Forms: Work/School Release - Critical Care Critical Care Time: No Attestation: On 03/06/22, the high probability of a clinically significant, sudden or life threatening deterioration of the following system(s) required my full and direct attention, intervention and personal management. The time I documented below is in addition to time spent performing reported procedures but includes the following listed in this critical care notation. Medical Decision Making - Medical Records Medical records reviewed: Yes: I reviewed the patient's medical records. - Brayden Inquiry Pt receiving controlled substance: No Vital Signs: 03/06/22 20:26 03/06/22 22:00 Temperature 98.5 F Temperature Source Oral Pulse Rate 66 Pulse Rate [Right] 94 H Respiratory Rate 18 Blood Pressure 120/87 Blood Pressure [Right Arm] 129/60 Blood Pressure Mean [Right Arm] 83 02 Sat by Pulse Oximetry 96 97 Oxygen Delivery Method Room Air - Lab Data Lab results reviewed: Yes: I reviewed the patient's lab results. Lab Results 03/06/22 20:39: WBC 9.3, RBC 5.08, Hgb 14.9, Hct 42.8, MCV 84.2, MCH 29.4, MCHC 34.9, RDW 13.0, Plt Count 295, MPV 6.7 L, Neut % (Auto) 55.0, Lymph % (Auto) 36.4, Beauregard % (Auto) 5.7, Eos % (Auto) 2.6, Baso % (Auto) 0.3, Neut # (Auto) 5.1, Lymph # (Auto) 3.4, Beauregard # (Auto) 0.5, Eos # (Auto) 0.2, Baso # (Auto) 0.0, ESR 9 03/06/22 20:39: PT 17.4 H, INR 1.59 H 03/06/22 20:39: Sodium 137, Potassium 3.6, Chloride 103, Carbon Dioxide 28, Anion Gap 9.6, BUN 18, Creatinine 0.80, Estimated Creat Clear 150, Estimated GFR 100, Est GFR ( Amer) 121, Glucose 163 H, Calcium 9.4, Total Bilirubin 0.6, AST 26, ALT 29, Alkaline Phosphatase 70, C-Reactive Protein 1.6, Total Protein 7.1, Albumin 4.1, Globulin 3.0, Albumin/Globulin Ratio 1.4, Procalcitonin 0.031 Result diagrams: 03/06/22 20:39 03/06/22 20:39 Orders (Tests/Meds): ED MEDICATIONS Generic Name Dose Route Start Last Admin Trade Name Freq PRN Reason Stop Dose Admin Sodium Chloride 1,000 mls @ 999 mls/hr 03/06/22 20:45 03/06/22 21:01 Sod Chlor 0.9% 1000ml Bag IV 03/06/22 21:45 999 mls/hr .Q1H1M SHAKIRA Administration Discontinued Medications Generic Name Dose Route Start Last Admin Trade Name Freq PRN Reason Stop Dose Admin Diphenhydramine HCl 25 mg 03/06/22 20:35 03/06/22 21:02 Diphenhydramine 50mg/Ml Vial IV 03/06/22 20:36 25 mg ONCE ONE Administration Ketorolac Tromethamine 30 mg 03/06/22 21:52 03/06/22 21:55 Ketorolac 30mg/Ml Vial IV 03/06/22 21:53 30 mg ONCE ONE Administration Methylprednisolone Sodium Succinate 125 mg 03/06/22 20:35 03/06/22 20:54 Methylprednisolone Sod Succ 125mg Vial IV 03/06/22 20:36 125 mg ONCE ONE Administration Ondansetron HCl 4 mg 03/06/22 21:02 03/06/22 21:04 Ondansetron 4mg/2ml Vial IV 03/06/22 21:03 4 mg ONCE ONE Administration - Reevaluation(s) Time: 22:36 Reevaluation #1: improved Medical Decision Narrative: pt with generalized reaction to multiple bee stings with no airway issues - improved but not back to baseline Allergic React/Insect Bite HPI - General Chief complaint: Allergic Reaction Stated complaint: stung 20 times on head and breaking out Time Seen by Provider: 03/06/22 21:08 Mode of Arrival - ED Triage: Ambulatory Source of Information:
[2022-03-06 21:15] LABS: Procalcitonin 0.031 ng/mL (0.0-2.0)
[2022-03-06 21:33] LABS: Erythrocyte Sedimentation Rate 9 mm/hr (0-20)
[2022-03-06 22:00] VITALS: BP 120/87; PULSE 66; O2SAT 97
[2022-03-06 22:44] VITALS: BP 121/74; PULSE 66; RESP 18; TEMP 36.9; O2SAT 97
== END 2022-03-06 22:45 | disposition home or self-care (01) ==
PROVIDERS: Emergency Provider Emergency Medicine; PCP Internal Medicine Adolescent Medicine
DX: T63.441A Toxic effect of venom of bees, accidental (unintentional), initial encounter (principal); E11.9 Type 2 diabetes mellitus without complications
CPT/HCPCS: 80053; 84145; 85025; 85610; 85651; 86140; 96365; 96375; 99284; J2405

== ENCOUNTER 2024-11-14 19:24 | Emergency (ER) | payer BC, SELFPAY ==
[2024-11-14 19:32] VITALS: BP 125/82; PULSE 87; RESP 18; TEMP 37.1; O2SAT 100; BMI 29.8
--- NOTE | 2024-11-14 19:38 | ED_ITS ---
<Statement entered by John Ayers MD - 11/14/24 23:17> I was consulted by the ROSALBA, and we discussed the complexity of the problems being addressed. I approved the treatment and management plan for this patient's care in the emergency department, thus performing a substantive portion of the medical decision making. John Ayers MD Discharge Plan Disposition Patient Disposition: Home, Self-Care Condition: Good Prescriptions Prescriptions: New amoxicillin-pot clavulanate 875-125 mg tablet 1 tab PO BID Qty: 20 0RF No Action metformin 500 MG tablet 500 mg PO BID 30 Days Qty: 60 0RF warfarin 5 MG tablet 7.5 mg PO COUMADIN empagliflozin 25 MG tablet 25 mg PO DAILY Rx Instructions: 1 week sample given atorvastatin 40 MG tablet 40 mg PO HS gabapentin 100 MG capsule 1 - 2 cap PO TID prednisone 20 MG tablet 20 mg PO BID Qty: 10 0RF Referrals Follow up/Referrals: Mahamed Ordonez MD [Primary Care Provider] - See instructions Activity Restrictions/Add. Instructions Additional Instructions/Restrictions: As we discussed I sent in a prescription for your antibiotic to your pharmacy. Please take it till it is gone. I recommend strongly that you establish care with a dentist to soon as possible. Again as we discussed you may contact the [facility] urgent care [facility] as they have a walk-in clinic. If you have continued new or worsening signs or symptoms follow-up with your PCP return to the ER as needed. Clinical Impressions Clinical Impression: Dentalgia, Acute lymphadenitis Print Language Print Language: Icelandic Discharge ED Provider: John Ayers General Adult HPI General Chief complaint: Dental/Oral Stated complaint: Toothache lower right jaw pain Time Seen by Provider: 11/14/24 19:37 Mode of Arrival: Ambulatory Source of Information: Patient Description of Symptoms (Recalled from ER Triage Doc. by RN): Pt presents for evaluation of right sided dental pain. Pt also noted to have right sided facial swelling. History of Present Illness HPI narrative: Patient presents for evaluation of dentalgia. Patient states that he was eating raisin bran yesterday and bit down on something hard and felt sharp pain in his right lower posterior teeth. He reports that he has had swelling and increasing pain throughout the day today. He denies any fever chills hemoptysis hematochezia melena nausea vomiting diarrhea. He has no difficulty managing his secretions is eating and drinking normally breathing normally. Related Data Home Medications ?Medication ?Instructions ?Recorded ?Confirmed atorvastatin 40 mg tablet 40 mg PO HS hld 11/02/21 11/02/21 empagliflozin 25 mg tablet 25 mg PO DAILY Diabetes 11/02/21 11/02/21 gabapentin 100 mg capsule 1 - 2 cap PO TID neuropathy 11/02/21 11/02/21 warfarin 5 mg tablet 7.5 mg PO COUMADIN dvt 11/02/21 11/02/21 Previous Rx's ?Medication ?Instructions ?Recorded metformin 500 mg tablet 500 mg PO BID Diabetes 30 days #60 09/11/21 tabs prednisone 20 mg tablet 20 mg PO BID #10 tabs 03/06/22 amoxicillin 875 mg-potassium 1 tab PO BID #20 tabs 11/14/24 clavulanate 125 mg tablet Allergies Allergy/AdvReac Type Severity Reaction Status Date / Time No Known Allergies Allergy Verified 05/21/21 17:51 [facility] Disclaimer: The information contained in this section may have been updated after the patient was seen, as this information can be updated by other users. Social History Smoking Status: Unknown if ever smoked alcohol intake: never current occupational status: employed Travel in the last 8 weeks: None household members: spouse housing: house caffeine: No Have you lived/traveled outside [place] in past 30 days?: No Contact w/someone who lives/traveled outside US past 30 days?: No Exposure to someone with infectious disease in past 14 days?: No Do you have a fever (greater than 100.4 F or 38 C)?: No Have you tested positive for COVID-19: No Exposed to someone with COVID-19 in past 14 days?: No Do you have a sore throat?: No Do you have a cough?: No Do you have any weakness?: No Do you have any diarrhea?: No Are you experiencing any unusual bleeding?: No Do you have any muscle aches/pain?: No Do you have any abdominal pain?: No Are you experiencing loss of taste or smell?: No Other Medical History Have you received the Flu Vaccine for this season: No Have you received the Pneumonia Vaccine: No ROS Obtained: Yes Systems reviewed as appropriate & no additional complaints except as documented Physical Exam General General appearance: alert and in no apparent distress Respiratory Respiratory exam: Present normal lung sounds bilaterally Cardiovascular Cardiovascular exam: Present regular rate Neurological Exam Neurological exam: Present alert and oriented X3 Medical Decision Making Medical Records Medical records reviewed: Yes I reviewed the patient's medical records. Screening: Per USPSTF and CDC recommendations, given the prevalence of disease in our region, it is our hospital?s policy to screen for HIV and viral Hepatitis for all patients aged 18 and over and those with ongoing risk factors. Brayden Inquiry Pt receiving controlled substance: No Vital Signs: 11/14/24 19:32 11/14/24 20:30 Temperature 98.7 F 98.3 F Temperature Source Oral Oral Pulse Rate 79 Pulse Rate [Right] 87 Respiratory Rate 18 16 Blood Pressure 116/74 Blood Pressure [Right Arm] 125/82 Blood Pressure Mean [Right Arm] 96 Blood Pressure Source Automatic Cuff Blood Pressure Source [Right Arm] Automatic Cuff Blood Pressure Position Supine Blood Pressure Position [Right Arm] Sitting 02 Sat by Pulse Oximetry 100 Oxygen Delivery Method Room Air Room Air Orders (Tests/Meds): ED MEDICATIONS Discontinued Medications Generic Name Dose Route Start Last Admin Trade Name Freq PRN Reason Stop Dose Admin Amoxicillin/Clavulanate Potassium 1 each 11/14/24 20:13 11/14/24 20:22 Amoxicillin/Clavulanate Potassium 875/125mg Tablet PO 11/14/24 20:14 1 each ONCE ONE Administration Lidocaine HCl 15 ml 11/14/24 20:14 11/14/24 20:22 Lidocaine 2% Viscous Roseanne 15ml Udc PO 11/14/24 20:15 15 ml ONCE ONE Administration Medical Decision Narrative: In summary patient is a 59-year-old male who presents to the emergency department for evaluation of right lower jaw dentalgia. Patient is hemodynamically stable upon arrival, afebrile. Physical exam is remarkable for no evidence of gingival erythema or inflammation, the floor of the mouth is soft with normal tongue protrusion, posterior pharynx is patent without erythema or tonsillar exudate, patient has normal phonation and normal breath sounds. I do not appreciate any fluid collection or abscess. He has left submandibular lymphadenitis and anterior cervical lymphadenitis on the right there is no cellulitis or induration of the face.. Differential diagnosis includes fracture tooth versus periapical abscess although patient has no evidence of deep space infection certainly could be in the differential however not pursued given the aforementioned lack of red flags. Initial workup was considered with labs and imaging but again patient has no evidence of deep space infection or red flags to suggest such thus labs and imaging were deferred. Initial interventions include dental balls. Given this as patient has no red flags for requirement of further workup with labs and imaging or interventions he is appropriate for discharge with a prescription for Augmentin and the aforementioned dental balls with recommendations to follow-up closely with dentistry for ongoing management and care with strict return precautions. Critical Care Critical Care Time Critical Care Time: No
[2024-11-14] MEDS: AMOXICILLIN/CLAVULANATE POTASSIUM 875/125MG TABLET 1 EACH PO (20:22)
[2024-11-14] MEDS: LIDOCAINE 2% VISCOUS SOL 15ML UDC 15 ML PO (20:22)
[2024-11-14 20:30] VITALS: BP 116/74; PULSE 79; RESP 16; TEMP 36.8; O2SAT 96
== END 2024-11-14 20:31 | disposition home or self-care (01) ==
PROVIDERS: Emergency Provider Emergency Medicine; PCP Internal Medicine Adolescent Medicine
DX: L04.9 Acute lymphadenitis, unspecified (principal); K08.89 Other specified disorders of teeth and supporting structures; R22.0 Localized swelling, mass and lump, head; D68.9 Coagulation defect, unspecified; E11.9 Type 2 diabetes mellitus without complications; Z86.16 Personal history of COVID-19
CPT/HCPCS: 99283

== ENCOUNTER 2025-02-11 07:40 | Outpatient (CLI) | payer BC, SELFPAY ==
--- OUTSIDE RECORDS SUMMARY | 2025-02-11 07:43 | XMS_ITS | Encounter Summary ---
Author Organization [place] [address] Care Team Providers Care District Manager Major Accounts Sales Name Role Phone Elijah Oneal MD Primary Care Provider [phone] Elijah Oneal MD Primary Care Provider [phone] Elijah Oneal MD Primary Care Provider [phone] Rhiannon Corrales RN Unavailable [phone] Fox King PA-C Unavailable [phone] Encounter Details Date Type Department Care Team (Late st Contact Info) Description 02/13/2016 Orders Only [facility] [address] [address] Isa Mohan MD Social History Tobacco Use Types Packs/Day Years Used Date Smoking Tobacco: Never Smokeless Tobacco: Never Alcohol Use Standard Drinks/Week Comments No 0 (1 standard drink = 0.6 oz pur e alcohol) Sex and Gender Information Value Date Recorded Sex Assigned at Not on file Legal Sex Male 2:08 AM EDT Gender Identity Not on file Sexual Orientation Not on file documented as of this encounter Functional Status * Is the person deaf or does he/she have serious difficulty hearing? Answer Date of Assessment Author No 03/19/2015 12:40 PM EDT Valeria Mckeon RN * Is the person blind or does he/she have serious difficulty seeing even when wearing glasses? Answer Date of Assessment Author No 03/19/2015 12:40 PM EDT Valeria Mckeon RN * Does this person have serious difficulty walking or climbing stairs? Answer Date of Assessment Author No 03/19/2015 12:40 PM EDT Valeria Mckeon RN * Does this person have difficulty dressing or bathing? Answer Date of Assessment Author No 03/19/2015 12:40 PM EDT Valeria Mckeon RN * Because of a physical, mental or emotional condition, does this person have difficulty doing errands alone such as visiting a doctor's office or shopping? Answer Date of Assessment Author No 03/19/2015 12:40 PM EDT Valeria Mckeon RN documented as of this encounter Mental Status * Because of a physical, mental or emotional condition, does this person have serious difficulty concentrating, remembering or making decisions? Answer Entry Date Author No 03/19/2015 12:40 PM EDT Valeria Mckeon RN documented in this encounter Plan of Treatment Not on file documented as of this encounter Procedures Procedure Name Priority Date/Time Associated Diagnosis Comments GMED EGD Routine 02/13/2016 11:15 AM EDT documented in this encounter Results * ED EGD (02/13/2016 11:15 AM EDT) 02/13/2016 11:1 5 AM EDT Impressions [facility] - 02/13/2016 11:55 AM EDT Normal EGD to descending duodenum. Normal mucosa in the antrum. (Biopsy). Plan: Await pathology results This section is an excerpt of the full report. us Isa Mohan MD GI PROCEDURE ORDERABLES Final R esult [facility] [address] [place] [address] documented in this encounter Visit Diagnoses Not on filedocumented in this encounter Care Teams District Manager Major Accounts Sales Relationship Specialty Start Date End Date Elijah Oneal MD [address] [place] [address] PCP - General Family Medicine 05/18/12 04/08/17 Elijah Oneal MD [address] [id number] PCP - General Family Medicine 04/17/17 07/24/17 Elijah Oneal MD [address] [id number] PCP - General Family Medicine 03/04/18 08/15/23 Rhiannon Corrales RN [address] [place] [address] Health Advocate Registered Nurse 03/04/18 06/14/18 Fox King PA-C [address] [place] [address] Physician Chief Building Inspector Physician Chief Building Inspector 03/05/18 documented as of this encounter
--- OUTSIDE RECORDS SUMMARY | 2025-02-11 07:43 | XMS_ITS | Encounter Summary ---
Author Organization [place] [address] Care Team Providers Care Hammersmith Helper Name Role Phone Elijah Oneal MD Primary Care Provider [phone] Elijah Oneal MD Primary Care Provider [phone] Elijah Oneal MD Primary Care Provider [phone] Rhiannon Corrales RN Unavailable [phone] Fox King PA-C Unavailable [phone] Encounter Details Date Type Department Care Team (Late st Contact Info) Description 02/13/2016 Orders Only [facility] [address] [id number] Isa Mohan MD Social History [...] Name Priority Date/Time Associated Diagnosis Comments [facility]ED COLONOSCOPY Routine 02/13/2016 11:0 0 AM EDT documented in this encounter Results * [facility]ED COLONOSCOPY (02/13/2016 11:00 AM EDT) 02/13/2016 11:0 0 AM EDT Impressions [facility] - 02/13/2016 11:54 AM EDT The examination was negative from a standpoint of screening. . Diverticulosis of the sigmoid colon. Internal hemorrhoids. Plan: Colonoscopy in 5 years due to previous history of polyps. This section is an excerpt of the full report. us Isa Mohan MD GI PROCEDURE ORDERABLES Final R esult [facility] [address] [place] [address] documented in this encounter Visit Diagnoses Not on filedocumented in this encounter Care Teams Hammersmith Helper Relationship Specialty Start Date End Date Elijah Oneal MD [address] [place] [address] PCP - General Family Medicine 05/18/12 04/08/17 Elijah Oneal MD [address] [id number] PCP - General Family Medicine 04/17/17 07/24/17 Elijah Oneal MD [address] [id number] PCP - General Family Medicine 03/04/18 08/15/23 Rhiannon Corrales RN [address] [place] [address] Health Advocate Registered Nurse 03/04/18 06/14/18 Fox King PA-C [address] [place] [address] Physician Behavioral Health Technician Physician Behavioral Health Technician 03/05/18 documented as of this encounter
--- OUTSIDE RECORDS SUMMARY | 2025-02-11 07:43 | XMS_ITS | Clinical Summary ---
Author Organization [facility] Address [address] [place] [address] Phone Care Team Providers Care Telephone Mechanic Name Role Phone Fox King PA-C Unavailable [phone] Allergies No known active allergies Medications Lancets [facility] MiscIndications: Type 2 diabetes mellitus without complication, without long-term current use of insulin ([facility]) 1 Stick by [facility].(Non-D rug; Combo Route) route 3 times daily. 1 box 1 03/05/2018 Active Blood Sugar Diagnostic [facility] StripIndications :Type 2 diabetes mellitus without complication, without long-term current use of insulin ([facility]) 1 Strip by [facility].(Non-D rug; Combo Route) route 3 times daily. 1 box 1 04/22/2018 Active pioglitazone (ACTOS) 45 mg Oral TabletIndication s:Type 2 diabetes mellitus without complication, without long-term current use of insulin (HCC) Take 1 Tab by mouth daily. 90 Tab 1 01/27/2020 Active Active Problems Problem Noted Date Diagnosed Date Type 2 diabetes mellitus wit hout complication, without long-term current use of insulin 03/05/2018 Obesity (BMI 30-39.9) 12/08/2013 BMI 30.0-30.9,adult 12/08/2013 Low back pain radiating to right leg 05/18/2012 Immunizations Immunization Administration Dates Next Due Pneumococcal Polysaccharide 23 Valent 05/01/2018 Surgical History Surgery Date Site/Laterality Comments KNEE SURGERY Right TONSILLECTOMY CYSTOSCOPY 03/18/2015 Left cystoscopy and stent placement stone removal; Surgeon: Nam Pat MD; Location: [facility] OR; Service: Urology Medical devices from this surgery are in the Medical Devices section. CYSTOSCOPY 03/18/2015 Surgeon: Nam Pat MD; Location: [facility] OR; Service: Urology Medical devices from this surgery are in the Medical Devices section. KIDNEY STONE SURGERY Medical History Medical History Date Comments Kidney stones Family History Medical History Relation Name Comments Diabetes Brother Diabetes Mother Relation Name Status Comments Brother Mother Social History Tobacco Use Types Packs/Day Years Used Date Smoking Tobacco: Never Smokeless Tobacco: Never Alcohol Use Standard Drinks/Week Comments No 0 (1 standard drink = 0.6 oz pur e alcohol) Sex and Gender Information Value Date Recorded Sex Assigned at Not on file Legal Sex Male 2:08 AM EDT Gender Identity Not on file Sexual Orientation Not on file Obstetrics History Last Filed Vital Signs Vital Sign Reading Time Taken Comments Blood Pressure 136/84 01/27/2020 2:46 PM EDT Pulse 90 01/27/2020 2:46 PM EDT Temperature 36.7 C (98 F) 01/27/2020 2:46 PM EDT Respiratory Rate 16 02/27/2018 10:59 PM EDT Oxygen Saturation 99% 03/11/2018 9:10 AM EDT Inhaled Oxygen Concentration - - Weight 116.1 kg (256 lb) 01/27/2020 2:46 PM EDT Height 185.4 cm (6' 1 ) 01/27/2020 2:46 PM EDT Body Mass Index 33.78 01/27/2020 2:46 PM EDT Plan of Treatment Health Maintenance Due Date Last Done Comments Annual Wellness Exam 1967 Kidney Health: uACR 1974 Hepatitis C Screening 1982 DTaP/TDaP/Td (1 - Tdap) 1983 Cologuard 2009 FIT 2009 Sigmoidoscopy 2009 Virtual Colonography 2009 Zoster (1 of 2) 2014 Lipids 10/18/2014 10/18/2013 Pneumococcal Vaccine 50+ (2 of 2 - PCV) 05/01/2019 05/01/2018 Diabetic Eye Exam 03/05/2020 03/05/2018 Hemoglobin A1c 07/29/2020 01/28/2020, 02/16, 03/04/2018 Kidney Health: eGFR 01/27/2021 01/28/2020, 03/13/2019, 02/27/2018, Additional history exists COVID-19 Vaccine ( season) 2024 Influenza Vaccine (Season Ended) 2025 Colon Cancer Screening 02/12/2026 Colonoscopy 02/12/2026 02/13/2016 Hepatitis B Vaccine Aged Out No longe r eligible based on patient's age to complete this topic Meningococcal B Vaccine Aged Out No l onger eligible based on patient's age to complete this topic Goals Goal Patient Goal Type Associated Problems Recent Progress Patient-Stated? Author Blood Pressure < 140/90 Blood Pressure 136/84(01/26 2:46 PM EDT) No Rhiannon Corrales RN 60 grams of carbohydrates intake for men Diet Not on track(2017 1:46 PM EDT) No Rhiannon Corrales RN Note: Per Meal. Eat a meal every 4 hours. If more than 5 hours between meals, have a 15-25 gram carb snack paired with a healthy protein and eat a meal within 2 hours. Maintain a healthy diet, exercise regularly and maintain an ideal body weight General No Rhiannon Corrales RN Glucose Monitoring General On track(2017 1:46 PM EDT) Yes Rhiannon Corrales RN Note: Check blood sugar twice daily: Fasting (80-120) , and 2 hours after dinner (Less than 140). BMI (Calculated) < 30 General 33.8( 020 2:46 PM EDT) No Rhiannon Corrales RN Stay Tobacco Free Lifestyle On track(2017 1:47 PM EDT) No Rhiannon Corrales RN Note: Patient Never Smoked. HEMOGLOBIN A1C < 6.5 Result Component 7.4(01/28/20 20 3:18 PM EDT) No Rhiannon Corrales, JAVIER Medical Devices Implanted Type Area Welder Tech Device Identifier Shelf Expiration Date Model / Serial / Lot Stent Ureteral Contour 6 X 26 #[id number] - [id number] Implanted:Qty: 1 on 03/18/2015 by Nam Pat MD at [facility] Stent Left: Ureter [employer]:MICROVASIVE: UROLOGY 04/18/2017 [id number] / / [id number] Procedures Procedure Name Priority Date/Time Associated Diagnosis Comments COMPREHENSIVE METABOLIC PANEL Routine 01/28/2020 3:18 PM EDT Type 2 diabetes mellitus without complication, without long-term current use of insulin (HCC) HEMOGLOBIN A1C Routine 01/28/2020 3:18 PM EDT Type 2 diabetes mellitus without complication, without long-term current use of insulin (HCC) HM DIABETES EYE EXAM Routine 03/05/2018 [facility] COLONOSCOPY Routine 02/13/2016 11:0 0 AM EDT LIPID SCREEN Routine 10/18/2013 11:18 AM EST Well adult exam from Last 3 Months or Most Recently Relevant to Health Maintenance Results * (ABNORMAL) HEMOGLOBIN A1C (01/28/2020 3:18 PM EDT) Hgb A1C 7.4(H) 4.2 - 5.6 % 01/28/2020 7:45 PM EDT [employer] Est. Avg Glucose 166 mg/dL 01/28/2020 7:45 PM EDT [employer] Blood Venipuncture / Unknown 01/28/2020 3:18 PM EDT 01/28/2020 3:18 PM EDT Narrative [employer] - 01/28/2020 7:45 PM EDT REFERENCE RANGE: Normal: 4.0-5.6% Pre-diabetes: 5.7-6.4% Provisional diagnosis of diabetes: >6.4% Hgb F>10% and anything which shortens red cell survival, such as hemolytic anemia, or unstable hemoglobin variants such as HbSS, HbSC, or HbCC, will lower the HbA1c value associated with a given level of glycemic control. us Elijah Oneal MD CHEMISTRY ORDERABLES Final Res ult [facility] [address] [facility] , [place] [address] * (ABNORMAL) COMPREHENSIVE METABOLIC PANEL (01/28/2020 3:18 PM EDT) Sodium 131(L) 136 - 145 mmol/L 01/28/2020 8:03 PM EDT [facility] Potassium 3.8 3.5 - 5.0 mmol/L 01/28/2020 8:03 PM EDT [facility] Chloride 97(L) 98 - 107 mmol/L 01/28/2020 8:03 PM EDT [facility] Total CO2 25 22 - 29 mmol/L 01/28/2020 8:03 PM EDT [facility] Anion Gap 9 7 - 16 mmol/L 01/28/2020 8:03 PM EDT [facility] Calcium 9.1 8.6 - 10.4 mg/dL 01/28/2020 8:03 PM EDT [facility] Glucose Lvl 230(H) 74 - 100 mg/dL 01/28/2020 8:03 PM EDT [facility] BUN 12 6 - 20 mg/dL 01/28/2020 8:03 PM EDT [facility] Creatinine 0.86 0.67 - 1.30 mg/dL 01/28/2020 8:03 PM EDT [facility] Albumin 3.8 3.5 - 5.2 gm/dL 01/28/2020 8:03 PM EDT [facility] Total Protein 6.4 6.4 - 8.3 gm/dL 01/28/2020 8:03 PM EDT [facility] Bili Total 0.3 0.1 - 1.4 mg/dL 01/28/2020 8:03 PM EDT [facility] ALT 19 <=41 U/L 01/28/2020 8:03 PM EDT [facility] AST 9 <=40 U/L 01/28/2020 8:03 PM EDT [facility] Alk Phos 74 40 - 129 U/L 01/28/2020 8:03 PM EDT [facility] [employer] [facility] GFR Afr Am 113 >=60 mL/min/1.7 3 m2 01/28/2020 8:03 PM EDT [facility] GFR Non Afr Am 98 >=60 mL/min/1.7 3 m2 01/28/2020 8:03 PM EDT [facility] Comment: This estimated GFR was calculated using CKD-EPI equation which is modified based on ethnicity for Non Americans and Americans. Both results are reported since it is not always possible to determine the patient's ethnicity. This equation should only be used for individuals 18 and older. It has not been validated for use with the elderly (>70 years), women, or in some racial or ethnic subgroups, such as Hispanics. The equation will be less accurate in people with differences in nutritional status or muscle mass. Blood Venipuncture / Unknown 01/28/2020 3:18 PM EDT 01/28/2020 3:18 PM EDT Elijah Oneal MD CHEMISTRY ORDERABLES Final Res ult Performing Organization Address [facility] de Phone Number [facility] [employer] [address], [place] [address] [facility] [address] [place], [place] [id number] * DIABETES EYE EXAM (03/05/2018) Left Diabetic Retinopathy Not Present Present/Not Present SEP OFFICE Right Diabetic Retinopathy Not Present Present/Not Present SEP OFFICE Elijah Oneal MD HEALTH MAINTENANCE Final Resul t Performing Organization Address [facility] Co de Phone Number SEP OFFICE * [facility] COLONOSCOPY (02/13/2016 11:00 AM EDT) 02/13/2016 11:0 0 AM EDT Impressions [facility] - 02/13/2016 11:54 AM EDT The examination was negative from a standpoint of screening. . Diverticulosis of the sigmoid colon. Internal hemorrhoids. Plan: Colonoscopy in 5 years due to previous history of polyps. This section is an excerpt of the full report. us Isa Mohan MD GI PROCEDURE ORDERABLES Final R esult Performing Organization Address [facility] Co de Phone Number [facility] [address] [place] [address] * LIPID SCREEN (10/18/2013 11:18 AM EST) Cholesterol 138 <=200 mg/dL [facility] Comment: < 200 Desirable 200 - 239 Borderline High >= 240 High Triglyceride 68 <=150 mg/dL [facility] Comment: < 150 Normal 150 - 199 Borderline High 200 - 499 High >= 500 Very High HDL 46 >=40 mg/dL [facility] Comment: > 60 Optimal 40 - 60 Acceptable < 40 Low LDL Calculated 78 <=100 mg/dL [facility] Comment: < 100 Optimal 100 - 129 Near or above optimal 130 - 159 Borderline High 160 - 189 High >= 190 Very High Blood specimen (specimen) UPPER LIMB STRUCTURE / Unknown 10/18/2013 11:18 AM EST 10/18/2013 4:42 PM EST us Elijah Oneal MD CHEMISTRY ORDERABLES Edited Re sult - Final Performing Organization Address [facility] Co de Phone Number [facility] [address] [place] [address] from Last 3 Months or Most Recently Relevant to Health Maintenance Insurance [facility] [place] [address] [address] JULIETA PPO * Guarantor: Ld Pruett Account Type Relation to Patient Date of Phone Billing Address [place] Personal Family Self Advance Directives For more information, please contact: [phone] * Full Code (Latest Code Status on File) Date Activated Date Inactivated Comments 03/19/2015 12:08 PM 03/19/2015 5:32 PM Care Teams Telephone Mechanic Relationship Specialty Start Date End Date Fox King PA-C [address] [place] [address] Physician Animal Trapper Physician Animal Trapper 03/05/18
--- OUTSIDE RECORDS SUMMARY | 2025-02-11 07:43 | XMS_ITS | Clinical Summary ---
Author Organization Healthcare Address [address] [place] [address] Care Team Providers Care Newspaper Stuffer Name Role Phone Unavailable Primary Care Provider Unavailabl e Allergies No known active allergies Medications atorvastatin (Lipitor) 40 MG tablet Take 40 mg by mouth every night. Take 1 tablet at bedtime 11/04/19 21 Active enoxaparin (Lovenox) 120 MG/0.8ML solution Inject 120 mg under the skin 2 (two) times a day. Inject 120mg (1 syringe) subQ twice daily (every 12 hours) until INR therapeutic as directed by coumadin clinic 12/15/19 21 Active escitalopram (Lexapro) 10 MG tablet Take 10 mg by mouth every night. Take 1 tablet at bedtime 11/09/19 21 Active empagliflozin (Jardiance) 10 MG Take 10 mg by mouth 1 (one) time each day. Take 1 tablet by mouth once daily 11/04/19 21 Active metFORMIN (Glucophage) 500 MG tablet Take 500 mg by mouth 2 (two) times a day with meals. Take 1 tablet by mouth every 12 hours with food. Active warfarin (Coumadin) 5 MG tablet Take 5 mg by mouth See administration instructions. Take as directed per After Visit Summary. Take 1 tablet (5mg) by mouth once daily except take 1/2 tablet on Mon/Wed/Fri or as directed by the [facility] Active glucose blood (OneTouch Ultra) test strip Use to test BID 100 each 02/24/20 21 Active Immunizations Immunization Administration Dates Next Due Pneumococcal, Unspecified 08/14/2020 Family History Medical History Relation Name Comments Diabetes Mother Relation Name Status Comments Mother Social History Tobacco Use Types Packs/Day Years Used Date Smoking Tobacco: Never Sex and Gender Information Value Date Recorded Sex Assigned at Not on file Legal Sex Male 8:07 PM EDT Gender Identity Not on file Sexual Orientation Not on file Last Filed Vital Signs Vital Sign Reading Time Taken Comments Blood Pressure 124/76 12/01/2020 3:25 PM EDT Pulse 86 12/01/2020 3:25 PM EDT Temperature - - Respiratory Rate 18 11/08/2020 1:37 PM EDT Oxygen Saturation 97% 12/01/2020 3:25 PM EDT Inhaled Oxygen Concentration - - Weight 111 kg (244 lb 11.4 oz) 12/01/2020 3:25 P M EDT Height 185.4 cm (6' 1 ) 12/01/2020 3:25 PM EDT Body Mass Index 32.29 12/01/2020 3:25 PM EDT Plan of Treatment Health Maintenance Due Date Last Done Comments [facility]-Depression Screening 1964 [facility]-/Child/Adol SDOH Screenings 1964 [facility]- SDOH Screenings 1982 [facility]-Adult SDOH Screenings 1982 [facility]-DTaP,Tdap,and Td Vaccine s (1 - Tdap) 1983 CT Colonography 2009 Colonoscopy 2009 FIT-DNA 2009 FIT 2009 FOBT 2009 Sigmoidoscopy 2009 [facility]-Colorectal Cancer Screening 2009 [facility]-Zoster Vaccines (1 of 2) 2014 [facility]-Pneumococcal Vaccine: 50 + Years (2 of 2 - PCV) 08/14/2021 08/14/2020, 05/01/2018 [id number] Vaccine ( season) 2024 12/13/2020, 11/16/2020, 09/06/2020 [facility]-Influenza Vaccine (Seaso n Ended) 2025 [facility]-RSV Vaccine: 60+ Years o r (1 - 1-dose 75+ series) 2039 [facility]-Diabetes: Hemoglobin A1C Discontinued , 09/18/2020 HPV Vaccines Aged Out No longer eligi ble based on patient's age to complete this topic [facility]-HIB Vaccines Aged Out No longer e ligible based on patient's age to complete this topic [facility]-Hepatitis A Vaccines Aged Out No longer eligible based on patient's age to complete this topic [facility]-IPV Vaccines Aged Out No longer e ligible based on patient's age to complete this topic [facility]-Rotavirus Vaccines Aged Out No lo nger eligible based on patient's age to complete this topic Procedures Procedure Name Priority Date/Time Associated Diagnosis Comments HEMOGLOBIN A1C Routine 11/03/2020 3:25 PM EDT from Last 3 Months or Most Recently Relevant to Health Maintenance Results * (ABNORMAL) Hemoglobin A1c (11/03/2020 3:25 PM EDT) Hemoglobin A1c 9.1(H) 4.7 - 6.0 % [facility] Comment: Glycohemoglobin Reference Range, 0 years and up: 4.7 to 6.0% . HA1C Interpretive Data: Diagnosis of Diabetes: Diabetic > or = 6.5% Pre-diabetic 5.7 to 6.4% Non-diabetic < or = 5.6% . Glycemic Targets for Type I and Type II Diabetics: Non- Adults <7.0% Adults <6.0% Children and Adolescents <7.5% . Source: [place] [employer]. Standards of medical care in diabetes, 2017. Diabetes Care.2017:40 (suppl 1):S1-S135. . HbA1c assay performed by an ion-exchange chromatography method that is certified traceable to the DCCT. 11/03/2020 3:25 PM EDT 11/03/2020 6:32 PM EDT us Ila Verma DO LAB BLOOD ORDERABLES Final Res ult [facility] from Last 3 Months or Most Recently Relevant to Health Maintenance
--- OUTSIDE RECORDS SUMMARY | 2025-02-11 07:43 | XMS_ITS ---
Author Organization Unknown Medications Medication Instructions Effective Dates (start - stop) Status metformin hydrochloride 1000 MG Oral Tablet [id number]:00:00.000+00:0 0 - Completed metformin hydrochloride 1000 MG Oral Tablet [id number]:00:00.000+00:0 0 - Completed metformin hydrochloride 1000 MG Oral Tablet [id number]:00:00.000+00:0 0 - Completed atorvastatin 40 MG Oral Tablet 2 [id number]:00:00.000+00:00 - Completed rivaroxaban 20 MG Oral Table t [Xarelto] [id number]:00:00.000+00:0 0 - Completed atorvastatin 40 MG Oral Tablet 2 [id number]:00:00.000+00:00 - Completed empagliflozin 25 MG Oral Tab let [Jardiance] [id number]:00:00.000+00:0 0 - Completed rivaroxaban 20 MG Oral Table t [Xarelto] [id number]:00:00.000+00:0 0 - Completed rivaroxaban 20 MG Oral Table t [Xarelto] [id number]:00:00.000+00:0 0 - Completed empagliflozin 25 MG Oral Tab let [Jardiance] [id number]:00:00.000+00:0 0 - Completed rivaroxaban 20 MG Oral Table t [Xarelto] [id number]:00:00.000+00:0 0 - Completed atorvastatin 40 MG Oral Tablet 2 [id number]:00:00.000+00:00 - Completed atorvastatin 40 MG Oral Tablet 2 [id number]:00:00.000+00:00 - Completed rivaroxaban 20 MG Oral Table t [Xarelto] [id number]:00:00.000+00:0 0 - Completed atorvastatin 40 MG Oral Tablet 2 [id number]:00:00.000+00:00 - Completed empagliflozin 25 MG Oral Tab let [Jardiance] [id number]:00:00.000+00:0 0 - Completed Patient Care team information Name Category Status Period Participants - - Proposed period not known -
--- NOTE | 2025-02-11 10:00 | CA_ITS ---
APPROVED REPORT EXAM: Comprehensive 2D, Doppler, and color-flow Echocardiogram Rv Mechanic: Jaki Parrish RDCS Ht: 6 ft 0 in Wt: 213lbs BSA: 2.19 BP: 117/75 mmHg Indications: PRE OP EVAL M-Mode Dimensions RVDd 1.75 cm (0.9-2.6) LA Diam 2.73 cm (1.9-4.0) LVDd 5.71 cm (3.5-5.7) LVDs 4.13 cm (3.5-5.7) IVSd 0.59 cm (0.6-1.1) PWd 0.72 cm (0.6-1.1) EF (Teich) 53.00% FS 27.70% EDV (Teich) 160.70 mL TAPSE 1.64 (<1.7) ESV (Teich) 75.50 mL LV Diastology E Decel Time 193 (160-240 msec) E/A Ratio 1.2 Mitral Valve MV E Max Saroj. 54.0 (40-130 cm/s) MV A Velocity 45.0 (40-130 cm/s) E/A Ratio 1.20 MV PHT 57.0 ms Left Ventricle The left ventricle is normal size. The left ventricular systolic function is normal. The left ventricular ejection fraction is within the normal range. Proximal septal thickening is present. There is normal LV segmental wall motion. Transmitral Doppler flow pattern suggests impaired LV relaxation. LVEF is 55%. Right Ventricle Right ventricle is mildly dilated. The right ventricular systolic function is normal. Atria The left atrium size is normal. The right atrium size is normal. There is no Doppler evidence of interatrial shunt. Aortic Valve The aortic valve opens well. There is no aortic valvular stenosis. No aortic regurgitation is present. Mitral Valve The mitral valve is normal in structure. No evidence of mitral valve stenosis. Trace mitral regurgitation. Tricuspid Valve Tricuspid valve is grossly normal in structure and function. Trace tricuspid regurgitation. There is insufficient TR jet to estimate RVSP. Pulmonic Valve The pulmonary valve is normal in structure. Trace pulmonic regurgitation. Great Vessels The aortic root is normal in size. IVC is normal in size and collapses >50% with inspiration. Pericardium There is no pericardial effusion. Other Information Study Quality: Fair Conclusion Normal biventricular systolic function. Mild RV dilation. No significant valvular stenosis or regurgitation. Electronically signed by : Ale Nguyen MD 02/16/2025 17:41:33
== END 2025-02-11 23:59 | disposition home or self-care (01) ==
LOC: RT 07:41
PROVIDERS: PCP Internal Medicine Adolescent Medicine; Visit Provider Nurse Practitioner Family
DX: Z01.810 Encounter for preprocedural cardiovascular examination (principal); I51.7 Cardiomegaly; R00.0 Tachycardia, unspecified
CPT/HCPCS: 93306

== ENCOUNTER 2025-02-24 09:00 | Day surgery (SDC) | payer BC, SELFPAY ==
[2025-02-24 09:29] VITALS: BMI 28.8
[2025-02-24 09:31] VITALS: BP 116/70; PULSE 85; RESP 20; TEMP 36.4; O2SAT 96
[2025-02-24 09:46] LABS: POC Glucose,Bedside 96 (70-110)
[2025-02-24] MEDS: LACTATED RINGERS 1000ML 1,000 ML 50 ML IV (10:01)
--- NOTE | 2025-02-24 10:08 | EXP.ANES.CKL ---
[facility] Disclaimer: The information contained in this section may have been updated after the patient was seen, as this information can be updated by other users. Medical History Diabetes mellitus, type 2 History of CVA (cerebrovascular accident) Encounter for pre-operative cardiovascular clearance Surgical History Hx of tonsillectomy Family History Other Family history of diabetes mellitus type II Social History Smoking Status: Unknown if ever smoked alcohol intake: never substance use type: unknown current occupational status: employed Travel in the last 8 weeks?: None household members: spouse housing: house caffeine: No [facility] Anesthesia Checklist Patient Identification Patient Identification: Arm Band and Verbal (Name & ) Structural Data Admitted From: Home Planned Operative Procedure/s: colonscopy Consent for Planned Operative Procedure(s) Verified: Yes Verified Documents: Surgical Consent and History and Physical NPO Status Verified Time NPO: 00:00 Additional verifications Anesthesia Reactions: No Airway Assessment Mallampati Score:: Class II Neurological Assessment Level of Consciousness: Awake, Alert and Appropriate Hx Seizures: No Anesthesia Plan Anesthesia Risk discussed: Yes Anesthesia Plan: Verified ASA Class: III Anesthesia Type: MAC
--- NOTE | 2025-02-24 10:33 | P.HP_ITS ---
History of Present Illness *Admission Date: 02/24/25 *Reason for visit:: Screening colonoscopy *History of present illness: Mr. Pruett is a 59-year-old gentleman who is here for follow-up screening/surveillance colonoscopy. His last colonoscopy was around the age of 49. The examination is deemed medically necessary for follow-up screening colonoscopy. The patient has been seen, interviewed and examined prior to the procedure by both myself and the anesthesia provider. [facility] Disclaimer: The information contained in this section may have been updated after the patient was seen, as this information can be updated by other users. Medical History Diabetes mellitus, type 2 History of CVA (cerebrovascular accident) Encounter for pre-operative cardiovascular clearance Surgical History Hx of tonsillectomy Family History Other Family history of diabetes mellitus type II Social History (Updated 02/24/25 @ 10:09 by Lisha Galeana CRNA) Smoking Status: Unknown if ever smoked alcohol intake: never substance use type: unknown current occupational status: employed Travel in the last 8 weeks?: None household members: spouse housing: house caffeine: No Have you lived/traveled outside US in past 30 days?: No Contact w/someone who lives/traveled outside US past 30 days?: No Exposure to someone with infectious disease in past 14 days?: No Do you have a fever (greater than 100.4 F or 38 C)?: No Have you tested positive for COVID-19?: No Exposed to someone with COVID-19 in past 14 days?: No Do you have a sore throat?: No Do you have a cough?: No Do you have any weakness?: No Do you have any diarrhea?: No Are you experiencing any unusual bleeding?: No Do you have any muscle aches/pain?: No Do you have any abdominal pain?: No Are you experiencing loss of taste or smell?: No Other Medical History Have you received the Flu Vaccine for this season: No Have you received the Pneumonia Vaccine: Yes Review of Systems Review of Systems Review of systems (narrative): Negative *Cardiovascular Comments: Negative *Gastrointestinal Comments: Negative *Genitourinary Comments: Negative *Musculoskeletal Comments: Negative *Neurologic Comments: Negative Meds Home Medications and Allergies Home Medications ?Medication ?Instructions ?Recorded ?Confirmed ?Type metformin 500 mg tablet 500 mg PO BID Diabetes 30 da ys #60 09/11/21 02/24/25 Rx tabs atorvastatin 40 mg tablet 40 mg PO HS hld 11/02/2106/11 History empagliflozin 25 mg tablet 25 mg PO DAILY Diabetes 02/24/25 History gabapentin 100 mg capsule 1 - 2 cap PO TID neuropathy 11/02/21 02/24/25 History cephalexin 500 mg capsule 500 mg PO TID 10 days #30 ca ps 01/27/25 01/27/25 Rx rivaroxaban 20 mg tablet (Xarelto) 20 mg PO HS 5 02/24/25 History sodium,potassium,mag sulfates 17.5 See Rx Instructions PO .COMPLEX 02/21/25 Rx gram-3.13 gram-1.6 gram oral soln #354 mL (Suprep Bowel Prep Kit) New Prescriptions to Start Prescriptions: Allergies Allergy/AdvReac Type Severity Reaction Status Date / Time COVID-19 vacc, bv (Orig, AdvReac Severe Other Verified 02/24/25 09:36 Omicron BA.4/5) (YPlan) (From Pfizer COVID Bival(12y up)(PF)) Exam Data for Last 24 hours Vital signs and Labs for Last 24 Hours: Temp Pulse Resp BP Pulse Ox O2 Del Method 97.6 F 85 20 116/70 96 Room Air 02/24/25 09:31 02/24/25 09:31 02/24/25 09:31 02/24/25 09:31 02/24/25 09:31 02/24/25 09:31 Laboratory Results - last 24 hr 02/24/25 09:37: POC Glucose 96 I & O for Last 24 hours: Intake & Output 02/21/25 02/22/25 02/23/25 02/24/25 23:59 23:59 23:59 23:59 Weight 213 lb *Routine HEENT Exam Head: Present normocephalic Eye: Present EOMI and PERRL ENT: Present mucous membranes moist *Routine Neck Exam Neck: Present supple *Routine Respiratory Exam Respiratory: Present CTA bilaterally *Routine Cardiovascular Exam Cardiovascular: Present RRR *Routine Abdominal Exam Abdominal: Present soft and normoactive bowel sounds; Absent tenderness *Routine Rectal Exam Rectal:: deferred *Routine Genitalia Exam Genitalia:: deferred *Routine Extremities Exam Extremities: Absent cyanosis, clubbing or edema *Routine Skin Exam Skin: Present warm; Absent rash *Routine Neurological Exam Neurological: Present alert and oriented X3 Assessment and Plan *Assessment and plan (1) Screening for colon cancer: Status: Acute Category: Medical Code(s): Z12.11 - Encounter for screening for malignant neoplasm of colon Plan A/P: 1. Screening for colon cancer is the preprocedural diagnosis. The patient will be anesthetized/sedated using MAC sedation. The patient has been seen and examined. Cardiac and lung assessment prior to the examination is stable. Proceed with planned screening colonoscopy.
--- NOTE | 2025-02-24 10:42 | P.PCN_ITS ---
[facility] Procedure Note Date: 02/24/25 Time: 10:57 Procedure Note:: Colonoscopy Procedure Report: Colonoscopy with cold snare polypectomy Endoscopist: Jose Gonzalez II, MD Referring physician: Mahamed Ordonez M.D. Date of Procedure: February 24, 2025 Equipment: Olympus 190 variable stiffness pediatric colonoscope Sedation: MAC sedation Indication: Mr. Pruett is a 59-year-old gentleman who is here for follow-up screening/surveillance colonoscopy. His last colonoscopy was around the age of 49 and was normal ([facility]). He reports no abdominal pain, weight loss, change in his bowel habits or rectal bleeding. He reports no family history of colon cancer. Procedure: Prior to the procedure, a history and physical exam was performed, and patient's medications and allergies were reviewed. The risks, benefits and alternatives of the sedation and procedure were discussed with the patient. All questions were answered and informed consent was obtained. The patient was brought to the procedure room. Patient identification and proposed procedure were verified by the physician and the nurse. The patient was placed in a left lateral decubitus position and the scope was passed under direct vision. Throughout the procedure, the patient's blood pressure, pulse, and oxygen saturations were monitored continuously. The colonoscopy was accomplished without difficulty. The patient tolerated the procedure well. Findings: On digital rectal examination there was normal rectal tone. There were no external hemorrhoids. The colonoscope was introduced through the anal canal to the rectum and advanced to the cecum. The ileocecal valve and appendiceal orifice were identified. The scope was advanced a short distance into the ileum which appeared grossly normal. The scope was then withdrawn into the colon. There was a single 4 mm polyp in the descending colon removed via cold snare polypectomy. The remaining cecum, ascending, transverse, descending, sigmoid and rectum were grossly normal. There were no mucosal abnormalities identified. Upon retroflexion within the rectum there were grade 1-2 internal hemorrhoids. The preparation was excellent throughout with [place] Preparation Score of 9. The cecal time was 11 minutes. Impression: 1. Diminutive 4 mm descending colon polyp 2. Grade 1-2 internal hemorrhoids Plan: I will follow-up the polyp histology. If the polyp is adenomatous, I would recommend repeat surveillance colonoscopy again in 7 years. I would encourage psyllium bulking fiber supplementation on a maintenance basis.
[2025-02-24 10:58] VITALS: BP 89/67; PULSE 87; RESP 20; TEMP 36.3; O2SAT 97
[2025-02-24 11:08] VITALS: BP 91/65; PULSE 76; RESP 20; O2SAT 99
[2025-02-24 11:18] VITALS: BP 96/67; PULSE 75; RESP 20; O2SAT 100
[2025-02-24 11:28] VITALS: BP 100/74; PULSE 80; RESP 20; TEMP 36.3; O2SAT 100
== END 2025-02-24 11:42 | disposition home or self-care (01) ==
PROVIDERS: PCP Internal Medicine Adolescent Medicine; Visit Provider Internal Medicine Gastroenterology
PROC: 0DJD8ZZ Inspection of Lower Intestinal Tract, Via Natural or Artificial Opening Endoscopic (ICD-10-PCS; CPT 45378; principal; 2025-02-24 10:30)
DX: Z12.11 Encounter for screening for malignant neoplasm of colon (principal); D12.4 Benign neoplasm of descending colon; K64.1 Second degree hemorrhoids; E11.9 Type 2 diabetes mellitus without complications; Z86.73 Personal history of transient ischemic attack (TIA), and cerebral infarction without residual deficits; Z79.84 Long term (current) use of oral hypoglycemic drugs; Z79.899 Other long term (current) drug therapy; Z79.01 Long term (current) use of anticoagulants; Z88.7 Allergy status to serum and vaccine
CPT/HCPCS: 45385; 82962; J2003; J2704; J7120

== ENCOUNTER 2025-03-23 11:51 | Outpatient (CLI) | payer BC, SELFPAY ==
--- OUTSIDE RECORDS SUMMARY | 2025-03-23 11:54 | XMS_ITS | Clinical Summary ---
Author Organization Healthcare Address [address] [place] [address] Care Team Providers Care Auto Crane Driver Name Role Phone Unavailable Primary Care Provider [...] Date Last Done Comments [facility]-Depression Screening 1964 [facility]-Infant/Child/Adol SDOH Screenings 1964 [facility]- SDOH Screenings 1982 [facility]-Adult SDOH Screenings 1982 [facility]-DTaP,Tdap,and Td Vaccine s (1 - Tdap) 1983 CT Colonography 2009 Colonoscopy 2009 FIT-DNA 2009 FIT 2009 FOBT 2009 Sigmoidoscopy 2009 [facility]-Colorectal Cancer Screening 2009 [facility]-Zoster Vaccines (1 of 2) 2014 [facility]-Pneumococcal Vaccine: 50 + Years (2 of 2 - PCV) 08/14/2021 08/14/2020, 05/01/2018 [id number]-38 Vaccine ( season) 2024 12/13/2020, 11/16/2020, 09/06/2020 [facility]-Influenza Vaccine (#1) 2025 [facility]-RSV Vaccine: 60+ Years o r [...] <6.0% Children and Adolescents <7.5% . Source: [place] [employer]. Standards of medical care in [...]
--- OUTSIDE RECORDS SUMMARY | 2025-03-23 11:54 | XMS_ITS | Encounter Summary ---
Author Organization [place] [address] Care Team Providers Care Tube Closing Machine Operator Name Role Phone Elijah Oneal MD Primary Care Provider [phone] Elijah Oneal MD Primary Care Provider [phone] Elijah Oneal MD Primary Care Provider [phone] Rhiannon Corrales RN Unavailable [phone] Fox King PA-C Unavailable [phone] Encounter Details Date Type Department Care Team (Late st Contact Info) Description 02/13/2016 Orders Only SEP Gastro [facility] [address] [address] Isa Mohan MD Social History [...] EDT) 02/13/2016 11:1 5 AM EDT Impressions [facility] - 02/13/2016 11:55 AM EDT Normal EGD to descending duodenum. Normal mucosa in the antrum. (Biopsy). Plan: Await pathology results This section is an excerpt of the full report. us Isa Mohan MD GI PROCEDURE ORDERABLES Final R esult [facility] [address] [place] [address] documented in this encounter Visit Diagnoses Not on filedocumented in this encounter Care Teams Tube Closing Machine Operator Relationship Specialty Start Date End Date Elijah Oneal MD [address] [place] [address] PCP - General Family Medicine 05/18/12 04/08/17 Elijah Oneal MD [address] [phone] PCP - General Family Medicine 04/17/17 07/24/17 Elijah Oneal MD [address] [phone] PCP - General Family Medicine 03/04/18 08/15/23 Rhiannon Corrales RN [address] [place] [address] Health Advocate Registered Nurse 03/04/18 06/14/18 Fox King PA-C [address] [place] [address] Physician Double End Sewer Physician Double End Sewer 03/05/18 documented as of this encounter
--- OUTSIDE RECORDS SUMMARY | 2025-03-23 11:54 | XMS_ITS | Encounter Summary ---
Author Organization [place] [address] Care Team Providers Care Insurance Agency Manager Name Role Phone Elijah Oneal MD Primary Care Provider [phone] Elijah Oneal MD Primary Care Provider [phone] Elijah Oneal MD Primary Care Provider [phone] Rhiannon Corrales RN Unavailable [phone] [address] PA-C Unavailable [phone] Encounter Details Date Type Department Care Team (Late st Contact Info) Description 02/13/2016 Orders Only SEP Gastro [facility] [address] [address] Isa Mohan MD Social History [...] EDT) 02/13/2016 11:0 0 AM EDT Impressions [facility] - 02/13/2016 11:54 AM EDT The examination was negative from a standpoint of screening. . Diverticulosis of the sigmoid colon. Internal hemorrhoids. Plan: Colonoscopy in 5 years due to previous history of polyps. This section is an excerpt of the full report. us Isa Mohan MD GI PROCEDURE ORDERABLES Final R esult [facility] [address] [place] [address] documented in this encounter Visit Diagnoses Not on filedocumented in this encounter Care Teams Insurance Agency Manager Relationship Specialty Start Date End Date Elijah Oneal MD [address] [place] [address] PCP - General Family Medicine 05/18/12 04/08/17 Elijah Oneal MD [address] [phone] PCP - General Family Medicine 04/17/17 07/24/17 Elijah Oneal MD [address] [id number] PCP - General Family Medicine 03/04/18 08/15/23 Rhiannon Corrales RN [address] [place] [address] Health Advocate Registered Nurse 03/04/18 06/14/18 Fox King PA-C [address] [place] [address] Physician Eye Technician Physician Eye Technician 03/05/18 documented as of this encounter
--- OUTSIDE RECORDS SUMMARY | 2025-03-23 11:54 | XMS_ITS | Clinical Summary ---
Author Organization [facility] Address [address] [place] [address] Phone Care Team Providers Care Transmission Calibration Engineer Name Role Phone Fox King PA-C Unavailable [phone] Allergies No known active allergies Medications [facility] MiscIndications: Type 2 diabetes mellitus without complication, without long-term current use of insulin ([facility]) 1 Stick by [facility].(Non-D rug; Combo Route) route 3 times daily. 1 box 1 03/05/2018 Active Blood Sugar [facility] StripIndications :Type 2 diabetes mellitus without complication, without long-term current use of insulin ([facility]) 1 Strip by [facility].(Non-D rug; Combo Route) route 3 times daily. [...] stone removal; Surgeon: Nam Pat MD; Location: [facility]; Service: Urology Medical devices from this surgery are in the Medical Devices section. CYSTOSCOPY 03/18/2015 Surgeon: Nam Pat MD; Location: [facility]; Service: Urology Medical devices from [...] COVID-19 Vaccine ( season) 2024 Influenza Vaccine (#1) 2025 Colon Cancer Screening 02/12/2026 Colonoscopy 02/12/2026 [...] Corrales, JAVIER Medical Devices Implanted Type Area High Wire Artist Device Identifier Shelf Expiration Date Model / Serial / Lot Stent Ureteral Contour 6 X 26 #[id number] - [id number] Implanted:Qty: 1 on 03/18/2015 by Nam Pat MD at [facility] Stent Left: Ureter [employer]:MICROVASIVE: UROLOGY 04/18/2017 [id number] / / [id number] Procedures Procedure Name Priority Date/Time Associated Diagnosis [...] - 5.6 % 01/28/2020 7:45 PM EDT [employer] Est. Avg Glucose 166 mg/dL 01/28/2020 7:45 PM EDT [employer] Blood Venipuncture / Unknown 01/28/2020 3:18 PM EDT 01/28/2020 3:18 PM EDT Narrative [employer] - 01/28/2020 7:45 PM EDT REFERENCE RANGE: [...] ult [facility] [address] [facility] [facility] , [address] [place] [address] * (ABNORMAL) COMPREHENSIVE METABOLIC PANEL [...] - 129 U/L 01/28/2020 8:03 PM EDT [facility] (formerly [employer]) [facility] GFR Afr Am 113 >=60 mL/min/1.7 3 m2 01/28/2020 8:03 PM EDT [facility] GFR Non Afr Am 98 >=60 mL/min/1.7 3 m2 01/28/2020 8:03 PM EDT [facility] Comment: This estimated GFR was calculated [...] ORDERABLES Final Res ult Performing Organization Address [facility] de Phone Number [facility] [employer] [address] [place] [address] [facility] [address] [place], [place] [id number] * DIABETES EYE EXAM (03/05/2018) Left Diabetic Retinopathy Not Present Present/Not Present SEP OFFICE Right Diabetic Retinopathy Not Present Present/Not Present SEP OFFICE Elijah Oneal MD HEALTH MAINTENANCE Final Resul t Performing Organization Address [facility] Co de Phone Number SEP OFFICE * GMED COLONOSCOPY (02/13/2016 11:00 AM EDT) 02/13/2016 11:0 0 AM EDT Impressions [facility] - 02/13/2016 11:54 AM EDT The examination was negative from a standpoint of screening. . Diverticulosis of the sigmoid colon. Internal hemorrhoids. Plan: Colonoscopy in 5 years due to previous history of polyps. This section is an excerpt of the full report. us Isa Mohan MD GI PROCEDURE ORDERABLES Final R esult Performing Organization Address City/[facility] Co de Phone Number [facility] [address] [place] [address] * LIPID SCREEN (10/18/2013 11:18 AM EST) Cholesterol 138 <=200 mg/dL [facility] Comment: < 200 Desirable 200 - 239 Borderline High >= 240 High Triglyceride 68 <=150 mg/dL [facility] Comment: < 150 Normal 150 - 199 Borderline High 200 - 499 High >= 500 Very High HDL 46 >=40 mg/dL [facility] Comment: > 60 Optimal 40 - 60 Acceptable < 40 Low LDL Calculated 78 <=100 mg/dL [facility] Comment: < 100 Optimal 100 - 129 Near or above optimal 130 - 159 Borderline High 160 - 189 High >= 190 Very High Blood specimen (specimen) UPPER LIMB STRUCTURE / Unknown 10/18/2013 11:18 AM EST 10/18/2013 4:42 PM EST us Elijah Oneal MD CHEMISTRY ORDERABLES Edited Re sult - Final Performing Organization Address City/[facility] Co de Phone Number [facility] [address] [place] [address] from Last 3 Months or Most Recently Relevant to Health Maintenance Insurance [facility] [place] [address] JULIETA PPO * Guarantor: Ld Pruett Account Type Relation to Patient Date of Phone Billing Address [place] Personal Family Self Advance Directives For more information, please contact: [phone] * Full Code (Latest Code Status on File) Date Activated Date Inactivated Comments 03/19/2015 12:08 PM 03/19/2015 5:32 PM Care Teams Transmission Calibration Engineer Relationship Specialty Start Date End Date Fox King PA-C [address] [place] [address] Physician Imaging Analyst Physician Imaging Analyst 03/05/18
[2025-03-23 12:52] LABS: Chloride 101 mmol/L (98-107)
[2025-03-23 12:53] LABS: Potassium 4.4 mmoL/L (3.5-5.1); Sodium 135 mmol/L (136-145)
[2025-03-23 12:55] LABS: Blood Urea Nitrogen 17 mg/dl (9-20); Creatinine,Serum 0.80 mg/dl (0.66-1.25); Estimated Glomerular Filt Rate 99 ml/min (>60); GFR (African American) 119 ML/MIN (>60)
[2025-03-23 12:56] LABS: Anion Gap 12.4 mEq/L (5-15); Calcium 9.6 mg/dl (8.4-10.2); Carbon Dioxide 26 mmol/L (22.0-30.0); Glucose 115 mg/dl (74-100)
[2025-03-23 13:53] LABS: Hemoglobin A1C 5.9 % (4.0-6.0)
== END 2025-03-23 23:59 | disposition home or self-care (01) ==
LOC: LAB 11:51
PROVIDERS: PCP Internal Medicine Adolescent Medicine; Visit Provider Internal Medicine Adolescent Medicine
DX: E11.69 Type 2 diabetes mellitus with other specified complication (principal)
CPT/HCPCS: 36415; 80048; 83036